=== PATIENT | female | born 1990 | race Caucasian/White ===

== ENCOUNTER → 2018-09-05 16:03 | Outpatient (CLI) | payer OTHER, SELFPAY ==
[2018-09-05 13:55] VITALS: BMI 38.7
[2018-09-05 19:52] LABS: Chlamydia Trachomatis by PCR Negative (Negative); Neisserai gonorrhoeae by PCR Negative (Negative); Probe Check PASS; Sample Adequacy Control PASS; Specimen Processing Control PASS
== END ==
PROVIDERS: Family Provider Family Medicine; PCP Family Medicine; Referring Provider Nurse Practitioner Women's Health; Visit Provider Nurse Practitioner Women's Health
DX: N90.89 Other specified noninflammatory disorders of vulva and perineum (principal); N89.8 Other specified noninflammatory disorders of vagina
CPT/HCPCS: 87070; 87205; 87255; 87491; 87591

== ENCOUNTER → 2019-09-01 10:10 | Outpatient (CLI) | payer OTHER, SELFPAY ==
[2019-09-01 09:22] VITALS: BMI 38.7
[2019-09-01 10:26] LABS: Absolute Lymphocyte Count 2.62 X10^3/uL (0.83-4.51); Absolute Neutrophil Count 5.6 X10^3/uL (2.0-7.7); Basophil# 0.03 X10^3/uL; Basophil% 0.3 % (0-1); Eosinophil# 0.06 X10^3/uL; Eosinophils% 0.7 % (0-5); Hematocrit 39.9 % (37-47); Hemoglobin 12.7 g/dL (12.0-15.0); Lymphocyte # 2.62 X10^3/ul (4.0); Lymphocyte % 28.9 % (19-41); Mean Corp Hgb Conc 31.8 g/dL (32-36); Mean Corpuscular Hgb 28.4 pg (27.0-32.0); Mean Corpuscular Volume 89.3 fL (81-99); Mean Platelet Vol. 9.1 fl (6.2-12.0); Monocyte# 0.69 X10^3/uL; Monocyte% 7.6 % (0-10); NRBC Flagged by Analyzer 0 % (0-5); Neutrophil # 5.64 X10^3/uL (2.7-7.7); Neutrophil % 62.2 % (47-70); Platelet Count 361 K/mm3 (150-450); RBC Distribution Width CV 13.2 % (11.6-14.6); RBC Distribution Width SD 42.9 fl (35.1-43.9); Red Blood Count 4.47 M/mm3 (4.2-5.4); White Blood Count 9.1 K/mm3 (4.4-11.0)
[2019-09-01 10:54] LABS: Glucose Challenge Gest 1H 50g 121 mg/dL (70-140)
[2019-09-01 11:39] LABS: HIV - WCH Non-Reactive (Nonreactive); Hepatitis B Surface Antigen Non-Reactive (Nonreactive); Hepatitis C Antibody Non-Reactive (Nonreactive); Rubella IgG 18.5 IU/mL
[2019-09-01 19:59] LABS: Chlamydia Trachomatis by PCR Negative (Negative); Neisserai gonorrhoeae by PCR Negative (Negative); Probe Check PASS; Sample Adequacy Control PASS; Specimen Processing Control PASS
[2019-09-03 21:57] LABS: Rapid Plasmin Reagin (RPR) NONREACTIVE (NONREACTIVE)
[2019-09-08 05:27] LABS: HPV Reflexed? NOT INDICATED
== END ==
PROVIDERS: PCP Family Medicine; Referring Provider Obstetrics & Gynecology; Visit Provider Obstetrics & Gynecology
DX: O09.90 Supervision of high risk pregnancy, unspecified, unspecified trimester (principal); Z12.4 Encounter for screening for malignant neoplasm of cervix; Z3A.00 Weeks of gestation of pregnancy not specified
CPT/HCPCS: 36415; 82950; 85025; 86592; 86703; 86762; 86803; 86850; 86900; 86901; 87086; 87088; 87340; 87491; 87591; 88175; G0145

== ENCOUNTER → 2019-09-29 | Outpatient (CLI) | payer OTHER, SELFPAY ==
[2019-09-29 16:08] VITALS: BMI 38.7
[2019-09-29 18:49] LABS: Amphetamine Urine VISTA NEGATIVE (<1000 ng/mL); Barbiturate Urine VISTA NEGATIVE (< 200 ng/mL); Benzodiazepine Urine VISTA NEGATIVE (< 200 ng/mL); Cocaine Urine VISTA NEGATIVE (< 300 ng/mL); Ecstacy Urine VISTA NEGATIVE (< 500 ng/mL); Methadone Urine VISTA NEGATIVE (< 300 ng/mL); PCP Urine VISTA NEGATIVE (< 25 ng/mL); THC Urine VISTA NEGATIVE (< 50 ng/mL); Vista UDS pH Range 7
== END | disposition home or self-care (01) ==
LOC: LABSPEC 17:20
PROVIDERS: PCP Family Medicine; Referring Provider Obstetrics & Gynecology; Visit Provider Obstetrics & Gynecology
DX: O09.90 Supervision of high risk pregnancy, unspecified, unspecified trimester (principal); Z3A.00 Weeks of gestation of pregnancy not specified
CPT/HCPCS: 80307

== ENCOUNTER → 2019-12-22 15:16 | Outpatient (CLI) | payer OTHER, SELFPAY ==
[2019-11-28 16:20] VITALS: BMI 38.7
[2019-12-22 15:37] LABS: Absolute Lymphocyte Count 2.37 X10^3/uL (0.83-4.51); Absolute Neutrophil Count 7.1 X10^3/uL (2.0-7.7); Basophil# 0.01 X10^3/uL; Basophil% 0.1 % (0-1); Eosinophil# 0.07 X10^3/uL; Eosinophils% 0.7 % (0-5); Hematocrit 36.6 % (37-47); Hemoglobin 11.8 g/dL (12.0-15.0); Lymphocyte # 2.37 X10^3/ul (4.0); Mean Corp Hgb Conc 32.2 g/dL (32-36); Mean Corpuscular Hgb 28.4 pg (27.0-32.0); Mean Platelet Vol. 9.4 fl (6.2-12.0); Monocyte% 6.8 % (0-10); NRBC Flagged by Analyzer 0 % (0-5); Platelet Count 326 K/mm3 (150-450); RBC Distribution Width SD 42.1 fl (35.1-43.9); Red Blood Count 4.16 M/mm3 (4.2-5.4); White Blood Count 10.3 K/mm3 (4.4-11.0)
[2019-12-22 15:51] LABS: Glucose Challenge Gest 1H 50g 133 mg/dL (70-140)
== END ==
PROVIDERS: PCP Family Medicine; Referring Provider Obstetrics & Gynecology; Visit Provider Obstetrics & Gynecology
DX: O09.90 Supervision of high risk pregnancy, unspecified, unspecified trimester (principal); Z13.1 Encounter for screening for diabetes mellitus; Z3A.00 Weeks of gestation of pregnancy not specified
CPT/HCPCS: 36415; 82950; 85025

== ENCOUNTER 2020-01-23 10:13 | Outpatient (RCR) | payer OTHER, SELFPAY ==
[2019-10-27 15:58] VITALS: BMI 38.7
[2020-01-19 15:42] VITALS: BMI 47.7
[2020-01-23 14:08] LABS: Probe Check PASS; Specimen Processing Control PASS
== END 2020-02-16 23:59 ==
LOC: EMPH 10:13
PROVIDERS: PCP Family Medicine; Visit Provider Family Medicine Geriatric Medicine
DX: U07.1 COVID-19 (principal)
CPT/HCPCS: 87426; 87635; U0002

== ENCOUNTER → 2020-02-02 14:50 | Outpatient (CLI) | payer OTHER, SELFPAY ==
[2019-11-28 16:20] VITALS: BMI 38.7
[2020-01-19 15:42] VITALS: BMI 47.7
--- NOTE | 2020-02-02 14:57 | US_ITS ---
STUDY: SECOND AND THIRD TRIMESTER OBSTETRICAL ULTRASOUND REASON FOR EXAM: Female, 29 years old GROWTH LMP: Unknown. TECHNIQUE: Transabdominal TECHNICAL QUALITY: Adequate. PRIOR ULTRASOUND: None. FINDINGS: There is a single intrauterine fetus. The fetus is in a cephalic presentation. There is demonstrated cardiac activity with a heart rate of 134 bpm. There is a normal amniotic fluid volume. The largest amniotic fluid pocket measures 3.7 cm. The amniotic fluid index (TARUN) is 11.9 cm. The placenta is anterior in location and is not low lying. There are Grade 1 placental changes. The cervix measures 4.0 cm in length. The cervix is closed. The adnexal regions are not visualized. BIOMETRY: BPD: 8.16 cm: 32 weeks, 6 days HC: 29.77 cm: 33 weeks, 0 days AC: 28.58 cm: 32 weeks, 5 days FL: 6.27 cm: 32 weeks, 4 days CI: 78 FL/BPD: 77 FL/AC: 22 HC/AC: 1.04 age by current US: 32 weeks, 6 days. ULISES by current US: 03/23/2020. Estimated weight: 2011 grams, +/- 294 grams, 45 %. age by prior US: No prior ultrasound. Age by LMP: 32 weeks, 3 days. ULISES by LMP: 03/26/2020. ANATOMY: anatomy is limited due to advanced gestation. In addition, a some is not dedicated to evaluate anatomy and therefore is limited in this regard. US/OB Limited With Biometrics IMPRESSION: Single intrauterine with ultrasound age of 32 weeks and 6 days and estimated date of delivery of 03/23/2020. VERTEX presentation. Anterior placenta with no previa. Normal amniotic fluid. Normal cardiac activity. Electronically Signed: Stefany Figueroa MD at 3:26 EST , Service support ,
== END ==
LOC: OPUS 14:52 → US 14:53
PROVIDERS: PCP Family Medicine; Referring Provider Obstetrics & Gynecology; Visit Provider Obstetrics & Gynecology
DX: O99.210 Obesity complicating pregnancy, unspecified trimester (principal); Z3A.32 32 weeks gestation of pregnancy
CPT/HCPCS: 76816

== ENCOUNTER → 2020-02-27 16:00 | Outpatient (CLI) | payer OTHER, SELFPAY ==
[2019-11-28 16:20] VITALS: BMI 38.7
[2020-02-25 15:48] VITALS: BMI 47.6
--- NOTE | 2020-02-27 16:01 | US_ITS ---
STUDY: SECOND AND THIRD TRIMESTER OBSTETRICAL ULTRASOUND - LIMITED REASON FOR EXAM: Female, 29 years old GROWTH LMP: PRIOR ULTRASOUND: 02/02/2020 TECHNIQUE: Transabdominal TECHNICAL QUALITY: Adequate. FINDINGS: There is a single intrauterine fetus. The fetus is in a cephalic presentation. There is demonstrated cardiac activity with a heart rate of 135 bpm. There is a normal amniotic fluid volume. The largest amniotic fluid pocket measures 5.7 cm. The amniotic fluid index (TARUN) is 14.7 cm. The placenta is anterior in location and is not low lying. There are Grade 1 placental changes. The cervix measures 3.9 cm in length. BIOMETRY: BPD: 8.8 cm: 35 weeks, 6 days HC: 33.0 cm: 37 weeks, 4 days AC: 31.5 cm: 35 weeks, 4 days FL: 7.0 cm: 35 weeks, 5 days Age by LMP: 36 weeks, 0 days. ULISES by LMP: 03/26/2020. age by current US: 36 weeks, 2 days. ULISES by current US: 03/24/2020. Estimated weight: 2760 grams, +/- 403 grams, 44 percentile. Gender: US/OB Limited With Biometrics IMPRESSION: Living intrauterine of 36 weeks 2 days as described above. Electronically Signed: Andrzej Bourgeois MD at 8:10 EST Tel , Service support ,
== END ==
PROVIDERS: PCP Family Medicine; Referring Provider Obstetrics & Gynecology; Visit Provider Obstetrics & Gynecology
DX: O09.90 Supervision of high risk pregnancy, unspecified, unspecified trimester (principal); O99.210 Obesity complicating pregnancy, unspecified trimester; O99.213 Obesity complicating pregnancy, third trimester; E66.9 Obesity, unspecified; Z3A.36 36 weeks gestation of pregnancy
CPT/HCPCS: 76816

== ENCOUNTER → 2020-03-01 | Outpatient (CLI) | payer OTHER, SELFPAY ==
[2020-03-01 15:53] VITALS: BMI 47.7
== END | disposition home or self-care (01) ==
LOC: LABSPEC 16:53
PROVIDERS: PCP Family Medicine; Visit Provider Obstetrics & Gynecology
DX: Z34.90 Encounter for supervision of normal pregnancy, unspecified, unspecified trimester (principal)
CPT/HCPCS: 87081

== ENCOUNTER → 2020-03-23 | Outpatient (CLI) | payer OTHER, SELFPAY ==
[2020-03-22 15:52] VITALS: BMI 49.2
== END | disposition home or self-care (01) ==
LOC: LABSPEC 18:00
PROVIDERS: PCP Family Medicine; Referring Provider Obstetrics & Gynecology; Visit Provider Obstetrics & Gynecology
DX: Z34.80 Encounter for supervision of other normal pregnancy, unspecified trimester (principal)
CPT/HCPCS: 87635; C9803; U0005; U0003

== ENCOUNTER 2020-04-01 18:55 | Inpatient (IN) | payer OTHER, SELFPAY ==
[2020-03-29 15:41] VITALS: BMI 49.5
[2020-04-01 20:40] VITALS: PULSE 72; O2SAT 97
[2020-04-01 20:42] VITALS: BP 136/83; PULSE 66
[2020-04-01] MEDS: Lactated Ringers 1,000 ML 50 ML IV (20:55)
[2020-04-01 21:07] VITALS: BMI 50.1
[2020-04-01 21:12] LABS: Absolute Lymphocyte Count 3.16 X10^3/uL (0.83-4.51); Absolute Neutrophil Count 8.1 X10^3/uL (2.0-7.7); Basophil# 0.02 X10^3/uL; Basophil% 0.2 % (0-1); Eosinophil# 0.05 X10^3/uL; Eosinophils% 0.4 % (0-5); Hematocrit 36.7 % (37-47); Hemoglobin 11.9 g/dL (12.0-15.0); Lymphocyte # 3.16 X10^3/ul (4.0); Lymphocyte % 25.6 % (19-41); Mean Corp Hgb Conc 32.4 g/dL (32-36); Mean Corpuscular Hgb 28.3 pg (27.0-32.0); Mean Corpuscular Volume 87.2 fL (81-99); Mean Platelet Vol. 10.2 fl (6.2-12.0); Monocyte# 0.96 X10^3/uL; Monocyte% 7.8 % (0-10); NRBC Flagged by Analyzer 0 % (0-5); Neutrophil # 8.08 X10^3/uL (2.7-7.7); Neutrophil % 65.6 % (47-70); Platelet Count 319 K/mm3 (150-450); RBC Distribution Width CV 14.1 % (11.6-14.6); RBC Distribution Width SD 44.6 fl (35.1-43.9); Red Blood Count 4.21 M/mm3 (4.2-5.4); White Blood Count 12.3 K/mm3 (4.4-11.0)
[2020-04-01 21:45] VITALS: TEMP 37.1
[2020-04-01 21:46] VITALS: BP 146/88
[2020-04-01 21:47] VITALS: PULSE 73; O2SAT 97
[2020-04-01] MEDS: miSOPROStol 25 MCG TABLET VAGINAL (21:58)
[2020-04-02] VITALS (121 sets, daily range): BP systolic 95–177; BP diastolic 49–110; PULSE 8–229; RESP 12–16; TEMP 36.6–37.5; O2SAT 81–100
--- NOTE | 2020-04-02 03:27 | HP.PCM_ITS ---
- Problem List (1) Encounter for induction of labor Status: Acute (2) Post-dates Status: Acute (3) 39 weeks gestation of Status: Acute Comment: electronic ordered 03/23/20 NEGATIVE (4) Obesity affecting Status: Acute Qualifiers: Comment: nl 1tm glucola. encouraged healthy weight gain. after 32 weeks plan growth US q 4 weeks and weekly nsts and testing until delivery. 01/04 nl growth, 02/01 nl growth, 02/26 nl growth (5) Status: Acute Qualifiers: Comment: declined genetic, carrier and NTD. Normal anatomy (6) Supervision of high risk , antepartum Status: Acute Comment: PRR ULISES 03/26/2020 surprise Spouse: Jun History and Physical Date of Admission: 04/02/20 Intake Vital Signs 03/29/20 Height 5 ft 6 in 03/29/20 Weight: 307 lb 03/29/20 BP 122/88 H Intake Visit Reasons: 40 WK OB/NST Oil Driller Required: No Is patient in pain?: No Allergies No Known Allergies Allergy (Verified 03/29/20 15:42) Medications multivitamin no.47-iron fum 27 mg-folate no.1 1 mg-dha 300 mg capsule cap PO 09/01/19 [History Confirmed 03/29/20] Last Menstral Period: 06/20/19 Zika: Zika virus screening: Negative : No PFSH PFSH Medical History Migraines (Acute) Obesity (Acute) Surgical History History of tonsillectomy (Acute) Family History Mother Hypertension Grandfather Cancer Aunt Cancer Grandmother CVA (cerebral vascular accident) Social History (Updated 03/30/20 @ 08:[address] 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 Patient has had a complicated by morbid obesity but has reassuring testing. OB Visit ULISES Calculator Estimated Delivery Date Method Current WG Current Estimate 03/26/20 LMP (Certain) 40w 4d Expected Delivery Route/Plan Labor Preferences- CB/BF classes: next month labor support person: Jun labor intervention preferences: [] pain management options preferred: [] cut cord/dad catch: [] : [] PP control planned: [] discussed possible routes of delivery and associated risks: [] special requests: [] Specific Issue/Plans flu vaccine: declined tdap vaccine: 12/21 given rhogam: na LARC form signed: declined movement and labor precautions reviewed. Problem list reviewed and updated with the most current plan of care details and appropriate orders placed. Relevant counseling for the gestational age provided. Continue routine care and follow up unless otherwise noted in visit notes/problem list details Initial Weight: 290 lb Date EGA Weight BP Urine Prot Glucose FHR FuHt Pres Dilation Effaced St Visit Note 09/29/19 14w 3d 289 lb (-16 oz) 120/88 Negative Negative 150 Sm- no vb cramping 10/27/19 18w 3d 291 lb (+16 oz) 132/86 Negative Negative 155 SM- no vb cramping, anatomy scan scheduled 11/28/19 23w 0d 290 lb (+0 oz) 126/78 Negative Negative 150 SM- no vb lof good fm no regular ctx. obtain anatomy scan reports. 12/22/19 26w 3d 291 lb (+16 oz) 110/82 Negative Negative 140 SM- no vb cramping lof good fm nl cbc gct tdap today 01/05/20 28w 3d 293 lb (+3 lb) 102/60 Negative Negative 145 29 SM- no vb lof good fm no regular ctx. 01/19/20 30w 3d 296 lb (+6 lb) 110/86 Negative Negative 140 31 SM- no vb lof good fm no regular ctx. 02/02/20 32w 3d 291 lb (+16 oz) 120/76 Negative Negative 140 SM- no vb lof good fm no regular ctx 02/09/20 33w 3d 294 lb 3 oz (+4 lb 3 oz) Negative Negative 140 nst only 02/19/20 34w 6d 298 lb (+8 lb) 124/85 Negative Negative 140 SM- no vb lof good fm no regular ctx 02/25/20 35w 5d 295 lb (+5 lb) 131/88 130 MH-reactive NST 03/01/20 36w 3d 296 lb (+6 lb) 125/81 130 SM- no vb lof good fm no regular ctx gbs done 03/08/20 37w 3d 298 lb 4 oz (+8 lb 4 oz) Negative Negative 140 37 GP - no LOF, VB, DFM, ctx. GBS negative. NST reactive. Declines SVE. 03/15/20 38w 3d 305 lb 4 oz (+15 lb 4 oz) 130/88 Negative Negative 135 38 MH-declined internal exam. No CTX. Good FM. No VB, LOF. Reactive NST 03/29/20 40w 3d 307 lb (+17 lb) 122/88 Negative Negative 130 1 50 -3 SM- nst done plan cytotec IOL night 41 weeks ACOG First Trimester First Trimester: Desire for , Alcohol, Tobacco Cessation, Illicit/Recreational Drug/Substance Use, Intimate Partner Violence, Barriers to care, Unstable Housing, Communication Barriers, Environmental/Work Hazards, Anticipated Course of Care, Toxoplasmosis Precations, Use of Any medications, Sexual activity, Exercise, Dental Care, Sauna/Hot tub use, Seat Belt use, Childbirth classes/Hospital facilities, , Travel, Indications for US and Screening for Aneuploidy Diagnostics Diagnostics Details: HIV: Urine Culture: Sequential Screen: NIPT Screen: ROS Const Reports system reviewed and no additional complaints, except as docu Card Reports system reviewed and no additional complaints, except as docu Resp Reports system reviewed and no additional complaints, except as docu GI Reports system reviewed and no additional complaints, except as docu, Reports nausea Reports system reviewed and no additional complaints, except as docu Musc Reports system reviewed and no additional complaints, except as docu Exam Const General: cooperative, healthy appearing, comfortable, anxious HENMT Head: normal to inspection Nose: external nose normal Face and sinus: normal facial exam Neck Neck: normal visual inspection, full ROM, no lymphadenopathy Thyroid: thyroid normal Chest Chest palpation & inspection: normal inspection of the chest Resp Effort & Inspection: normal respiratory effort GI Inspection: normal to inspection Palpation: soft, other (gravid uterus) Other: infant vertex and appropriate size for gestational age Other: Cervical Exam: Extrem General: pedal edema Office Procedures OB NST Non-Stress Test Indications for Monitoring: Yes Morbid obesity Heart Rate Baseline: 130 Heart Rate Variability: moderate Movement: Present Heart Rate Accelerations: Present Decelerations: Absent Contractions: Absent Impression: Yes Reactive Non-Stress Test Category 1 Results POC Urinalysis 2 Dip (Clinic) Office Urine Glucose Negative Last Edit by Rebecca Tai on 03/29/20 16:07 Office Urine Protein Negative Last Edit by Rebecca Tai on 03/29/20 16:07 Assessment & Plan Problems 1. 39 weeks gestation of Z3A.39 electronic ordered 03/23/20 NEGATIVE 2. Obesity affecting O99.210 nl 1tm glucola. encouraged healthy weight gain. after 32 weeks plan growth US q 4 weeks and weekly nsts and testing until delivery. 01/04 nl growth, 02/01 nl growth, 02/26 nl growth 3. 40 weeks gestation of Z3A.40 declined genetic, carrier and NTD. Normal anatomy 4. Supervision of high risk , antepartum O09.90 PRR ULISES 03/26/2020 surprise Spouse: Jun 30-year-old G1, P0 at 41 weeks presents for induction of labor secondary to postdates. Patient presents IOL, plan management for with Cytotec followed by Pitocin. Pain management: [plans epidural]. GBS [negative]. Management of any complications: [none] I have reviewed the [facility] and made any clinically relevant updates. Orders Orders: OB NST 03/29/20 O99.210 POC Urinalysis 2 Dip (Clinic) 03/29/20 Coding Level of Care Code OB Routine Diagnoses 39 weeks gestation of Z3A.39 Obesity affecting O99.210 40 weeks gestation of Z3A.40 ??Weeks of gestation: 40 weeks Supervision of high risk , antepartum O09.90 Additional Codes Non-Stress Test (30615)
[2020-04-02] MEDS: miSOPROStol 25 MCG TABLET PO (03:32)
[2020-04-02] MEDS: Acetaminophen 500 MG Tablet PO ×2 (03:36→16:55)
[2020-04-02] MEDS: Oxytocin 30 units/NS 500 ml 30 UNITS/500 ML IV.SOLN IV (07:51)
[2020-04-02] MEDS: Lactated Ringers 500 ML 999 ML IV ×2 (08:46→13:12)
[2020-04-02] MEDS: Labetalol (Prefilled) 20 MG/4 ML IV (09:00)
[2020-04-02] MEDS: Magnesium Sulfate 4gm/100mL 4 GM/100 ML IV.SOLN. IV (09:27)
[2020-04-02] MEDS: Labetalol 100 MG Tablet PO ×2 (09:37→22:32)
[2020-04-02] MEDS: Magnesium Sulfate 4gm/100mL 2 GM/50 ML IV.SOLN. IV (09:52)
[2020-04-02] MEDS: Magnesium Sulfate 20 GM/500 ML BAG IV ×2 (10:06→21:02)
[2020-04-02] MEDS: fentaNYL-bupivacaine (epidural) 100 ML BAG EPIDURAL ×3 (10:41→19:45)
[2020-04-02 12:09] LABS: AST(SGOT) 13 U/L (15-37); Alanine Aminotransfer ALT/SGPT 21 U/L (13-56); Creatinine, Serum 0.42 mg/dL (0.55-1.02); EST Glomerular Filtration Rate 186 mL/min (>60); Est Glom Filt Rate - Afr Amer 225 mL/min (>60); Estimated Creatinine Clearance 183.35 ml/min; Uric Acid 3.1 mg/dL (2.6-6.0)
[2020-04-02 12:34] LABS: Protein, Urine (Random) 8.8 mg/dL (<11.9); Protein:Creat Ratio 221 mg/g CRE (0-200)
[2020-04-02] MEDS: Lactated Ringers 1,000 ML 150 ML IV (13:25)
[2020-04-02] MEDS: 0.9% Saline Lock 10 ML Syringe IV ×3 (16:50→23:23)
[2020-04-02] MEDS: Ondansetron 4 MG/2 ML Vial IV (18:09)
[2020-04-02] MEDS: Amnioinfusion- 0.9% NS 1,000 ML IV.SOLN. 1000 ML INTRA-UTER (18:44)
[2020-04-02] MEDS: Oxytocin 30 units/NS 500 ml 30 UNITS/500 ML IV.SOLN 334 UNITS IV (21:58)
--- NOTE | 2020-04-02 22:07 | PCM.OPRPT ---
Problem List (1) Encounter for induction of labor Status: Acute (2) Post-dates Status: Acute (3) 39 weeks gestation of Status: Acute Comment: electronic ordered 03/23/20 NEGATIVE (4) Obesity affecting Status: Acute Qualifiers: Comment: nl 1tm glucola. encouraged healthy weight gain. after 32 weeks plan growth US q 4 weeks and weekly nsts and testing until delivery. 01/04 nl growth, 02/01 nl growth, 02/26 nl growth (5) Status: Acute Qualifiers: Comment: declined genetic, carrier and NTD. Normal anatomy (6) Supervision of high risk , antepartum Status: Acute Comment: PRR ULISES 03/26/2020 surprise Spouse: Jun (7) Preeclampsia, severe Status: Acute Comment: intrapartum, magnesium started resolved with labetalol Vaginal Delivery Maternal Presentation: Medically Indicated Induction iol 41 weeks Method of Induction: Pitocin, Cytotec Medical Reason for Induction: Post term Amniotic Membrane Rupture Type: Spontaneous Amniotic Fluid Description: Clear Final ULISES: 03/26/20 Gestational age: 41 Weeks and 0 Days Date of Procedure: 04/02/20 Pre-Operative Diagnosis: iol postdates Post-Operative Diagnosis: same Surgery/ Procedure Performed: Spontaneous Vaginal Delivery Type of Anesthesia: Epidural Description of Procedure: Patient began pushing and delivered the head in the ALEX presentation. The head was delivered atraumatically. The anterior and posterior shoulders delivered without complication followed by the rest of the infant and the infant was placed on the maternal abdomen. Delayed cord clamping was employed for approximately 60 seconds. Cord was clamped and cut and gentle traction was applied to the cord and the placenta delivered spontaneously immediately following it was noted to be intact with three-vessel cord. The perineum and vagina were inspected and noted to have no laceration. EBL was 100 cc. Patient and infant tolerated delivery well. Presentation: DONATO, ALEX Placental Delivery Description: Spontaneous Placenta Disposition: [facility] Cord Vessel Description: 3 Vessels Cord Entanglement: None Estimated Blood Loss: 100 A gender: Male Episiotomy Description: None Laceration: None Medications given after delivery: IV Pitocin Complications: None Multi Select Codes - Urinary/Genital Urinary/Genital CPT Codes: 08603 Vaginal Delivery [facility]
[2020-04-02 23:24] LABS: Hemoglobin 11.8 g/dL (12.0-15.0); Mean Corp Hgb Conc 32.8 g/dL (32-36); Mean Corpuscular Hgb 28.2 pg (27.0-32.0); Mean Corpuscular Volume 86.1 fL (81-99); Mean Platelet Vol. 10.3 fl (6.2-12.0); Platelet Count 311 K/mm3 (150-450); RBC Distribution Width CV 14.3 % (11.6-14.6); RBC Distribution Width SD 44.4 fl (35.1-43.9); Red Blood Count 4.18 M/mm3 (4.2-5.4); White Blood Count 24.9 K/mm3 (4.4-11.0)
[2020-04-03] VITALS (30 sets, daily range): BP systolic 102–138; BP diastolic 51–75; PULSE 68–96; RESP 16–18; TEMP 36.4–37.1; O2SAT 82–99
[2020-04-03] MEDS: Senna/Docusate Sodium 1 Tablet PO ×2 (00:36→09:22)
[2020-04-03] MEDS: Magnesium Sulfate 20 GM/500 ML BAG IV (06:33)
--- NOTE | 2020-04-03 08:52 | PCM.PN.OB ---
Patient Problems: Active and Suspected Problems (Last Reviewed 03/29/20 @ 15:41 by Rebecca Tai) Encounter for induction of labor (Acute) Post-dates (Acute) Preeclampsia, severe (Acute) intrapartum, magnesium started resolved with labetalol 39 weeks gestation of (Acute) electronic ordered 03/23/20 NEGATIVE Obesity affecting (Acute) nl 1tm glucola. encouraged healthy weight gain. after 32 weeks plan growth US q 4 weeks and weekly nsts and testing until delivery. 01/04 nl growth, 02/01 nl growth, 02/26 nl growth (Acute) declined genetic, carrier and NTD. Normal anatomy Supervision of high risk , antepartum (Acute) PRR ULISES 03/26/2020 surprise Spouse: Jun Subjective: Patient doing well without complaints. Tolerating PO. Ambulating and voiding without difficulty. feeding well. Denies chest pain, shortness of breath, calf pain/swelling, fevers, chills, lightheadedness. - Physical Exam Vitals/I&O's: Vital Signs Temp Pulse Resp BP Pulse Ox 98.2 F 94 18 133/75 H 98 04/03/20 08:10 04/03/20 08:11 04/03/20 08:10 04/03/20 08:11 04/03/20 06:55 Oxygen Delivery Method Room Air Weight: 311 lb Body Mass Index (BMI) 50.1 Intake and Output for Last 24 Hours 04/01/20 04/02/20 04/03/20 23:59 23:59 23:59 Intake Total 4020.54 / 4020.54 2065.03 / 2065.03 Output Total 1984 3950 / 3950 Balance 2035.54 / 2035.54 -1884.97 / -1884.97 General: Alert, Oriented x3 Lungs: Clear to auscultation Cardiovascular: Regular rate Laboratory Results 04/02/20 11:20: Creatinine 0.42 L, Estim Creat Clear Calc 183.35, Est GFR (MDRD) Af Amer 225, Est GFR (MDRD) Non-Af 186, Uric Acid 3.1, AST 13 L, ALT 21 04/02/20 12:00: U Random Total Protein 8.8, Urine Creatinine 39.80, Protein/Creatinin Ratio 221 H 04/02/20 22:15: WBC Cancelled, Corrected WBC Cancelled, RBC Cancelled, Hgb Cancelled, Hct Cancelled, MCV Cancelled, MCH Cancelled, MCHC Cancelled, RDW Std Deviation Cancelled, RDW Coeff of Sienna Cancelled, Plt Count Cancelled, MPV Cancelled, Diff Path Review Cancelled 04/02/20 23:15: WBC 24.9 H, RBC 4.18 L, Hgb 11.8 L, Hct 36.0 L, MCV 86.1, MCH 28.2, MCHC 32.8, RDW Std Deviation 44.4 H, RDW Coeff of Sienna 14.3, Plt Count 311, MPV 10.3 Current Medications Acetaminophen (Acetaminophen 500 Mg Tablet) 1,000 mg PO Q8H PRN PRN PRN Reason: Pain Score 1-3 Bisacodyl (Bisacodyl 10 Mg Suppository) 10 mg RECTAL UD PRN PRN Reason: If no BM Dibucaine (Dibucaine 30 Gm Tube) 1 applic TOPICAL TID PRN PRN; Protocol PRN Reason: Discomfort Hydrocortisone (Hydrocortisone 2.5% Crm) 1 applic TOPICAL TID PRN PRN; Protocol PRN Reason: Discomfort Naproxen (Naproxen 250 Mg Tablet) 500 mg PO Q8H PRN PRN PRN Reason: Pain Score 1-3 Ondansetron HCl (Ondansetron 4 Mg/2 Ml Vial) 4 mg IV Q4H PRN PRN PRN Reason: Nausea Oxycodone HCl (Oxycodone 5 Mg Tablet) 5 - 10 mg PO Q4H PRN PRN PRN Reason: Pain Score 4-10 Senna/Docusate Sodium (Senna/Docusate Sodium 1 Tablet) 1 - 2 tablet PO DAILY PRN PRN PRN Reason: Constipation Last Admin: 04/03/20 00:36 Dose: 2 tablet Documented by: Simethicone (Simethicone 80 Mg Tablet) 80 mg PO PCHS PRN PRN Reason: Indigestion/Stomach pain Sodium Chloride (0.9% Saline Lock 10 Ml Syringe) 5 - 15 ml IV UD PRN PRN Reason: SALINE FLUSH Last Admin: 04/02/20 23:23 Dose: 10 ml Documented by: Medical Necessity - Tobacco Use Smoking Status: Never smoker Assessment/Plan All Active Problems (Last Reviewed 03/29/20 @ 15:41 by Rebecca Tai) Encounter for induction of labor (Acute) Post-dates (Acute) Preeclampsia, severe (Acute) 39 weeks gestation of (Acute) Obesity affecting (Acute) (Acute) Supervision of high risk , antepartum (Acute) s/p PPD # 1 1. routine post delivery care 2. breast feeding- support given 3. rh positive 4. rubella immune preeclampsia with severe features- nl labs and nl protein in urine but severely elevated bps in labor, controlled with labetalol in labor and magnesium sulfate. nl bps now off anti hypertensives, will dc magnesium and monitor bps.
--- NOTE | 2020-04-03 08:56 | DCINST_ITS ---
Discharge Diet: No Restrictions Discharge Activity: Return to Normal Activity, May not drive while taking narcotic pain medications., May Shower May resume sexual activity in: 4-6 weeks Call your doctor if your incision/area has: Continuous Slow Oozing, Sudden Increased Bleeding, Increased Pain/ Swelling, Increased Redness, Foul Smelling Discharge Additional Instructions: If you experience any of the following, contact your healthcare provider. * Bleeding that soaks a pad every hour for 2 hours * Fever 100.4 or higher * Unrelieved incision or abdominal pain * Swelling, redness, discharge or bleeding from your incision or episiotomy site * Your incision begins to separate * Problems urinating (including inability to urinate or burning while urinating). * Visual changes * Severe headache * Flu-like symptoms * Pain or redness in one of both of your breasts * Pain, warmth, tenderness or swelling in your legs, especially the calf area * Frequent nausea and vomiting * Symptoms of depression or anxiety If you experience any of the following, call 911 or go to the nearest Emergency Room. * Chest pain * Problems breathing * Seizure activity * Partial or complete paralysis of a body part, slurred speech, weakness or drooping of the face, or a sudden inability to walk or hold your balance Allergies/Adverse Reactions: Allergies No Known Allergies Allergy (Verified 04/01/20 21:11) Medications to take at Discharge multivitamin no.47-iron fum 27 mg-folate no.1 1 mg-dha 300 mg capsule 1 tab PO DAILY 09/01/19 Naproxen [Naprosyn] 250 - 500 mg PO Q8H PRN PRN #30 tab 04/03/20 The following prescriptions were given: Naproxen [Naprosyn] 250 - 500 mg PO Q8H PRN PRN #30 tab PRN Reason: MILD PAIN Transmission Status: Received by [facility] Please Follow Up With: Kyung Cruz MD - [phone] When: Call to make an appointment with your doctor in 6 weeks. If you had elevated Blood pressure or 4th degree laceration you will need to be seen in 2 weeks. Primary Care Physician: Amadou Harvey MD [Primary Care Provider] - Test Results: Test results from this visit will be discussed in further detail at your follow- up appointment, if applicable.
--- NOTE | 2020-04-03 08:56 | PCM.DCVAG ---
Discharge Diet: No Restrictions Discharge Activity: Return to Normal Activity, May not drive while taking narcotic pain medications., May Shower May resume sexual activity in: 4-6 weeks Call your doctor if your incision/area has: Continuous Slow Oozing, Sudden Increased Bleeding, Increased Pain/ Swelling, Increased Redness, Foul Smelling Discharge Additional Instructions: If you experience any of the following, contact your healthcare provider. Bleeding that soaks a pad every hour for 2 hours Fever 100.4 or higher Unrelieved incision or abdominal pain Swelling, redness, discharge or bleeding from your incision or episiotomy site Your incision begins to separate Problems urinating (including inability to urinate or burning while urinating). Visual changes Severe headache Flu-like symptoms Pain or redness in one of both of your breasts Pain, warmth, tenderness or swelling in your legs, especially the calf area Frequent nausea and vomiting Symptoms of depression or anxiety If you experience any of the following, call 911 or go to the nearest Emergency Room. Chest pain Problems breathing Seizure activity Partial or complete paralysis of a body part, slurred speech, weakness or drooping of the face, or a sudden inability to walk or hold your balance Allergies/Adverse Reactions: Allergies No Known Allergies Allergy (Verified 04/01/20 21:11) Medications to take at Discharge multivitamin no.47-iron fum 27 mg-folate no.1 1 mg-dha 300 mg capsule 1 tab PO DAILY 09/01/19 Naproxen [Naprosyn] 250 - 500 mg PO Q8H PRN PRN #30 tab 04/03/20 The following prescriptions were given: Naproxen [Naprosyn] 250 - 500 mg PO Q8H PRN PRN #30 tab PRN Reason: MILD PAIN Transmission Status: Received by [facility] Please Follow Up With: Kyung Cruz MD - [phone] When: Call to make an appointment with your doctor in 6 weeks. If you had elevated Blood pressure or 4th degree laceration you will need to be seen in 2 weeks. Primary Care Physician: Amadou Harvey MD [Primary Care Provider] - Test Results: Test results from this visit will be discussed in further detail at your follow-up appointment, if applicable.
[2020-04-03] MEDS: 0.9% Saline Lock 10 ML Syringe IV (09:22)
[2020-04-03] MEDS: Acetaminophen 500 MG Tablet 1000 MG PO ×2 (12:12→20:13)
[2020-04-04] VITALS (9 sets, daily range): BP systolic 118–184; BP diastolic 53–100; PULSE 55–74; RESP 16–18; TEMP 36.6–37.1; O2SAT 98
--- NOTE | 2020-04-04 06:15 | PCM.PN.OB ---
Patient Problems: Active and Suspected Problems (Last Reviewed 03/29/20 @ 15:41 by Rebecca Tai) Encounter for induction of labor (Acute) Post-dates (Acute) Preeclampsia, severe (Acute) intrapartum, magnesium started resolved with labetalol 39 weeks gestation of (Acute) electronic ordered 03/23/20 NEGATIVE Obesity affecting (Acute) nl 1tm glucola. encouraged healthy weight gain. after 32 weeks plan growth US q 4 weeks and weekly nsts and testing until delivery. 01/04 nl growth, 02/01 nl growth, 02/26 nl growth (Acute) declined genetic, carrier and NTD. Normal anatomy Supervision of high risk , antepartum (Acute) PRR ULISES 03/26/2020 surprise Spouse: Jun Subjective: Patient doing well without complaints. Tolerating PO. Ambulating and voiding without difficulty. feeding well. Denies chest pain, shortness of breath, calf pain/swelling, fevers, chills, lightheadedness. - Physical Exam Vitals/I&O's: Vital Signs Temp Pulse Resp BP Pulse Ox 98.8 F 55 L 16 118/53 L 98 04/04/20 02:02 04/04/20 02:06 04/04/20 02:02 04/04/20 02:06 04/04/20 02:05 Oxygen Delivery Method Room Air Weight: 311 lb Body Mass Index (BMI) 50.1 Intake and Output for Last 24 Hours 04/02/20 04/03/20 04/04/20 23:59 23:59 23:59 Intake Total 4020.54 / 4020.54 2110.03 / 2110.03 Output Total 1984 4100 / 4100 Balance 2035.54 / 2035.54 -1988.97 / -1988.97 General: Alert, Oriented x3 Current Medications Acetaminophen (Acetaminophen 500 Mg Tablet) 1,000 mg PO Q8H PRN PRN PRN Reason: Pain Score 1-3 Last Admin: 04/03/20 20:13 Dose: 1,000 mg Documented by: Bisacodyl (Bisacodyl 10 Mg Suppository) 10 mg RECTAL UD PRN PRN Reason: If no BM Dibucaine (Dibucaine 30 Gm Tube) 1 applic TOPICAL TID PRN PRN; Protocol PRN Reason: Discomfort Hydrocortisone (Hydrocortisone 2.5% Crm) 1 applic TOPICAL TID PRN PRN; Protocol PRN Reason: Discomfort Naproxen (Naproxen 250 Mg Tablet) 500 mg PO Q8H PRN PRN PRN Reason: Pain Score 1-3 Ondansetron HCl (Ondansetron 4 Mg/2 Ml Vial) 4 mg IV Q4H PRN PRN PRN Reason: Nausea Oxycodone HCl (Oxycodone 5 Mg Tablet) 5 - 10 mg PO Q4H PRN PRN PRN Reason: Pain Score 4-10 Senna/Docusate Sodium (Senna/Docusate Sodium 1 Tablet) 1 - 2 tablet PO DAILY PRN PRN PRN Reason: Constipation Last Admin: 04/03/20 09:22 Dose: 2 tablet Documented by: Simethicone (Simethicone 80 Mg Tablet) 80 mg PO PCHS PRN PRN Reason: Indigestion/Stomach pain Sodium Chloride (0.9% Saline Lock 10 Ml Syringe) 5 - 15 ml IV UD PRN PRN Reason: SALINE FLUSH Last Admin: 04/03/20 09:22 Dose: 10 ml Documented by: Medical Necessity - Tobacco Use Smoking Status: Never smoker Assessment/Plan All Active Problems (Last Reviewed 03/29/20 @ 15:41 by Rebecca Tai) Encounter for induction of labor (Acute) Post-dates (Acute) Preeclampsia, severe (Acute) 39 weeks gestation of (Acute) Obesity affecting (Acute) (Acute) Supervision of high risk , antepartum (Acute) s/p PPD # 2 1. routine post delivery care 2. breast feeding- support given 3. rh positive 4. rubella immune
== END 2020-04-04 11:55 | disposition home or self-care (01) | DRG 807 ==
PROVIDERS: Admitting Provider Obstetrics & Gynecology; PCP Family Medicine; Visit Provider Obstetrics & Gynecology
DX: O48.0 Post-term pregnancy (principal); O14.14 Severe pre-eclampsia complicating childbirth; E66.01 Morbid (severe) obesity due to excess calories; O99.214 Obesity complicating childbirth; Z3A.41 41 weeks gestation of pregnancy; Z37.0 Single live birth
CPT/HCPCS: 59025; 59050; 82565; 82570; 84156; 84450; 84460; 84550; 85025; 85027; 86850; 86900; 86901; 99218; J7030; J7120; A4216; G0378; J2405; J3490

== ENCOUNTER 2020-04-07 11:45 | Outpatient (CLI) | payer OTHER, SELFPAY ==
[2020-04-08 09:30] VITALS: BMI 46.4
== END 2020-04-07 12:24 | disposition home or self-care (01) ==
LOC: TELEHEALTH 04-08 13:35
PROVIDERS: PCP Family Medicine; Visit Provider Registered Nurse Lactation Consultant
DX: Z39.1 Encounter for care and examination of lactating mother (principal)
CPT/HCPCS: 96158; 96159

== ENCOUNTER 2020-04-07 18:50 | Outpatient (CLI) | payer OTHER, SELFPAY ==
[2020-04-08 09:30] VITALS: BMI 46.4
== END 2020-04-07 23:59 | disposition home or self-care (01) ==
LOC: TELEHEALTH 04-08 13:40
PROVIDERS: PCP Family Medicine; Visit Provider Registered Nurse Lactation Consultant
DX: Z39.1 Encounter for care and examination of lactating mother (principal)
CPT/HCPCS: 96158; 96159

== ENCOUNTER 2020-07-16 08:09 | Outpatient (RCR) | payer OTHER, SELFPAY ==
[2020-02-09 15:44] VITALS: BMI 47.5
[2020-05-14 10:18] VITALS: BMI 47.2
== END 2020-07-16 23:59 ==
LOC: EMPH 08:09
PROVIDERS: PCP Family Medicine; Visit Provider Family Medicine Geriatric Medicine
DX: Z03.818 Encounter for observation for suspected exposure to other biological agents ruled out (principal)
CPT/HCPCS: 87426

== ENCOUNTER 2020-08-07 08:05 | Outpatient (RCR) | payer OTHER, SELFPAY ==
[2020-05-14 10:18] VITALS: BMI 47.2
== END 2020-08-16 23:59 ==
LOC: EMPH 08:05
PROVIDERS: PCP Family Medicine; Visit Provider Family Medicine Geriatric Medicine
DX: Z03.818 Encounter for observation for suspected exposure to other biological agents ruled out (principal)
CPT/HCPCS: 87426

== ENCOUNTER 2020-08-28 09:29 | Outpatient (RCR) | payer OTHER, SELFPAY ==
[2020-05-14 10:18] VITALS: BMI 47.2
== END 2020-09-15 23:59 ==
LOC: EMPH 09:29
PROVIDERS: PCP Family Medicine; Visit Provider Family Medicine Geriatric Medicine
DX: Z03.818 Encounter for observation for suspected exposure to other biological agents ruled out (principal)
CPT/HCPCS: 87426

== ENCOUNTER 2020-09-16 19:16 | Outpatient (RCR) | payer OTHER, SELFPAY ==
[2020-05-14 10:18] VITALS: BMI 47.2
== END 2020-10-16 23:59 ==
LOC: EMPH 19:16
PROVIDERS: PCP Family Medicine; Visit Provider Family Medicine Geriatric Medicine
DX: Z03.818 Encounter for observation for suspected exposure to other biological agents ruled out (principal)
CPT/HCPCS: 87426

== ENCOUNTER 2020-11-15 07:40 | Outpatient (RCR) | payer OTHER, SELFPAY ==
[2020-05-14 10:18] VITALS: BMI 47.2
== END 2020-11-16 23:59 ==
LOC: EMPH 07:40
PROVIDERS: PCP Family Medicine; Visit Provider Family Medicine Geriatric Medicine
DX: Z03.818 Encounter for observation for suspected exposure to other biological agents ruled out (principal)
CPT/HCPCS: 87426

== ENCOUNTER 2020-12-06 07:33 | Outpatient (RCR) | payer OTHER, SELFPAY ==
[2020-11-17 00:21] VITALS: BMI 47.2
== END 2020-12-16 23:59 ==
LOC: EMPH 07:33
PROVIDERS: PCP Family Medicine; Referring Provider Family Medicine Geriatric Medicine; Visit Provider Family Medicine Geriatric Medicine
DX: Z03.818 Encounter for observation for suspected exposure to other biological agents ruled out (principal)
CPT/HCPCS: 87426; 87635; U0005; U0003

== ENCOUNTER 2021-01-01 06:41 | Outpatient (RCR) | payer OTHER, SELFPAY ==
[2020-12-17 00:16] VITALS: BMI 47.2
== END 2021-01-16 23:59 ==
LOC: EMPH 06:41
PROVIDERS: PCP Family Medicine; Referring Provider Family Medicine Geriatric Medicine; Visit Provider Family Medicine Geriatric Medicine
DX: Z03.818 Encounter for observation for suspected exposure to other biological agents ruled out (principal)
CPT/HCPCS: 87426

== ENCOUNTER 2021-01-22 07:50 | Outpatient (RCR) | payer OTHER, SELFPAY ==
[2021-01-17 00:12] VITALS: BMI 47.2
== END 2021-02-15 23:59 ==
LOC: EMPH 07:50
PROVIDERS: PCP Family Medicine; Referring Provider Family Medicine Geriatric Medicine; Visit Provider Family Medicine Geriatric Medicine
DX: Z03.818 Encounter for observation for suspected exposure to other biological agents ruled out (principal)
CPT/HCPCS: 87426

== ENCOUNTER 2021-02-25 14:12 | Outpatient (RCR) | payer OTHER, SELFPAY ==
[2021-02-16 00:18] VITALS: BMI 47.2
== END 2021-03-18 23:59 ==
LOC: EMPH 14:12
PROVIDERS: PCP Family Medicine; Referring Provider Family Medicine Geriatric Medicine; Visit Provider Family Medicine Geriatric Medicine
DX: Z03.818 Encounter for observation for suspected exposure to other biological agents ruled out (principal)
CPT/HCPCS: 87426

== ENCOUNTER → 2021-08-05 | Outpatient (CLI) | payer OTHER, SELFPAY ==
[2021-08-05 15:50] LABS: Absolute Lymphocyte Count 2.86 X10^3/uL (0.83-4.51); Absolute Neutrophil Count 6.5 X10^3/uL (2.0-7.7); Basophil# 0.02 X10^3/uL; Basophil% 0.2 % (0-1); Eosinophil# 0.08 X10^3/uL; Eosinophils% 0.8 % (0-5); Hematocrit 37.3 % (37-47); Hemoglobin 12.4 g/dL (12.0-15.0); Lymphocyte # 2.86 X10^3/ul (0.83-4.51); Lymphocyte % 28.3 % (19-41); Mean Corp Hgb Conc 33.2 g/dL (32-36); Mean Corpuscular Hgb 29.5 pg (27.0-32.0); Mean Corpuscular Volume 88.8 fL (81-99); Mean Platelet Vol. 8.9 fl (6.2-12.0); Monocyte# 0.65 X10^3/uL; Monocyte% 6.4 % (0-10); NRBC Flagged by Analyzer 0 % (0-5); Neutrophil # 6.46 X10^3/uL (2.7-7.7); Neutrophil % 63.8 % (47-70); Platelet Count 355 K/mm3 (150-450); RBC Distribution Width CV 12.5 % (11.6-14.6); RBC Distribution Width SD 41.1 fl (35.1-43.9); White Blood Count 10.1 K/mm3 (4.4-11.0)
[2021-08-05 16:34] LABS: ALB/GLOB Ratio 1.1 RATIO (0.9-2.4); AST(SGOT) 14 U/L (15-37); Alanine Aminotransfer ALT/SGPT 25 U/L (13-56); Albumin, Serum 3.6 g/dL (3.2-5.0); Alkaline Phosphatase 33 U/L (45-117); Anion Gap 4 (5-15); BUN 7 mg/dL (7-18); BUN/Creat Ratio 11.4 RATIO (10-20); Calcium,Total 8.9 mg/dL (8.5-10.1); Chloride 105 mmol/L (98-107); Creatinine, Serum 0.61 mg/dL (0.55-1.02); EST Glomerular Filtration Rate 121 mL/min (>60); Est Glom Filt Rate - Afr Amer 146 mL/min (>60); Globulin 3.4 g/dL (2.2-4.2); Glucose 149 mg/dL (74-106); Glucose Challenge Gest 1H 50g 149 mg/dL (70-140); Potassium 3.4 mmol/L (3.5-5.1); Sodium Level 136 mmol/L (136-145)
[2021-08-05 19:03] LABS: Protein, Urine (Random) < 6.0 mg/dL (<11.9)
[2021-08-05 19:05] LABS: Amphetamine Urine VISTA NEGATIVE (<1000 ng/mL); Barbiturate Urine VISTA NEGATIVE (< 200 ng/mL); Benzodiazepine Urine VISTA NEGATIVE (< 200 ng/mL); Cocaine Urine VISTA NEGATIVE (< 300 ng/mL); Ecstacy Urine VISTA NEGATIVE (< 500 ng/mL); Methadone Urine VISTA NEGATIVE (< 300 ng/mL); PCP Urine VISTA NEGATIVE (< 25 ng/mL); THC Urine VISTA NEGATIVE (< 50 ng/mL); Vista UDS pH Range 6
[2021-08-08 09:34] LABS: HIV - WCH Non-Reactive (Nonreactive); Hepatitis B Surface Antigen Non-Reactive (Nonreactive); Hepatitis C Antibody Non-Reactive (Nonreactive); Rubella IgG Reactive (Nonreactive); Syphilis Antibodies Non-reactive
[2021-08-08 20:07] LABS: Chlamydia By Nucleic Acid AMP Negative (Negative)
[2021-08-08 20:20] LABS: Gonococcus By Nucleic Acid AMP Negative (Negative)
== END | disposition home or self-care (01) ==
PROVIDERS: PCP Family Medicine; Referring Provider Obstetrics & Gynecology; Visit Provider Obstetrics & Gynecology
DX: Z34.90 Encounter for supervision of normal pregnancy, unspecified, unspecified trimester (principal); Z87.59 Personal history of other complications of pregnancy, childbirth and the puerperium
CPT/HCPCS: 36415; 80053; 80307; 82570; 82950; 84156; 85025; 86703; 86762; 86780; 86803; 86850; 86900; 86901; 87086; 87088; 87340; 87491; 87591

== ENCOUNTER → 2021-08-11 | Outpatient (CLI) | payer OTHER, SELFPAY ==
[2021-08-11 07:35] LABS: Glucose GTT-Gestation. Fasting 99 mg/dL (<105)
[2021-08-11 09:07] LABS: Glucose GTT-Gestational 1 Hr 139 mg/dL (<190)
[2021-08-11 10:15] LABS: Glucose GTT-Gestational 2 Hr 114 mg/dL (<165)
[2021-08-11 11:02] LABS: Glucose GTT-Gestational 3 Hr 66 L (<145)
== END | disposition home or self-care (01) ==
LOC: LAB 07:02
PROVIDERS: PCP Family Medicine; Referring Provider Obstetrics & Gynecology; Visit Provider Obstetrics & Gynecology
DX: Z13.1 Encounter for screening for diabetes mellitus (principal)
CPT/HCPCS: 36415; 82951; 82952

== ENCOUNTER → 2021-08-12 | Outpatient (CLI) | payer OTHER, SELFPAY ==
--- NOTE | 2021-08-12 16:15 | EKG12_ITS ---
Test Reason : PRENANCY Blood Pressure : / mmHG Vent. Rate : 059 BPM Atrial Rate : 059 BPM P-R Int : 160 ms QRS Dur : 094 ms QT Int : 414 ms P-R-T Axes : 028 -02 024 degrees QTc Int : 409 ms Sinus bradycardia with sinus arrhythmia Voltage criteria for left ventricular hypertrophy Abnormal ECG Confirmed by DEVI OWENS, BECCA ([id number]), food editor DEYANIRA OMALLEY ([id number]) on 08/16/2021 1:03:43 PM Referred By: Kyung Cruz Confirmed By:BECCA QUINONEZ MD
== END | disposition home or self-care (01) ==
LOC: PSN 16:13
PROVIDERS: PCP Family Medicine; Referring Provider Obstetrics & Gynecology; Visit Provider Obstetrics & Gynecology
DX: O16.9 Unspecified maternal hypertension, unspecified trimester (principal)
CPT/HCPCS: 93005

== ENCOUNTER → 2021-11-30 | Outpatient (CLI) | payer OTHER, SELFPAY ==
--- NOTE | 2021-11-30 13:45 | ECHOD_ITS ---
Reason For Study: HTN Procedure This was a 2D Doppler, Color Flow transthoracic echocardiogram. Exam performed in department. Left Ventricle Normal left ventricle. Left ventricular systolic function is normal. The estimated ejection fraction is 60 %. No regional wall motion abnormalities noted. Right Ventricle Normal RV size. Normal systolic function. Atria Normal left atrium. Normal right atrium. Mitral Valve Normal mitral valve. Tricuspid Valve Normal tricuspid valve. Aortic Valve Normal aortic valve. Trisinus/trileaflet aortic valve. Pulmonic Valve Normal pulmonic valve. Great Vessels Normal aortic root. The pulmonary artery is normal size. Normal inferior vena cava. Pericardium/Pleural No pericardial effusion. MMode/2D Measurements & Calculations LVIDd: 5.3 cm IVSd: 1.1 cm Ao root diam: 3.1 cm LVIDs: 3.0 cm LVPWd: 0.92 cm RVDd: 3.9 cm FS: 43.5 % LAV(MOD-sp4): 80.8 ml LVAd ap4: 37.4 cm2 SV(MOD-sp4): 93.3 ml LVLd ap4: 8.3 cm EDV(MOD-sp4): 135.6 ml EDV(sp4-el): 142.9 ml LVAs ap4: 17.8 cm2 LVLs ap4: 6.5 cm ESV(MOD-sp4): 42.3 ml ESV(sp4-el): 41.5 ml EF(MOD-sp4): 68.8 % EF(sp4-el): 70.9 % SV(sp4-el): 101.4 ml LA A4 area: 25.6 cm2 LA dimension(2D): 4.2 cm RA A4 area: 20.6 cm2 Time Measurements MV dec time: 0.20 sec Doppler Measurements & Calculations MV E max stormy: 88.0 cm/sec MV V2 max: 116.7 cm/sec MV dec slope: 587.2 cm/sec2 MV A max stormy: 77.2 cm/sec MV max P.5 mmHg MV E/A: 1.1 MV V2 mean: 72.3 cm/sec MV mean P.4 mmHg MV V2 VTI: 29.1 cm Ao V2 max: 139.4 cm/sec LV V1 max: 141.5 cm/sec PA V2 max: 99.4 cm/sec Ao max P.8 mmHg LV V1 max P.0 mmHg Ao V2 mean: 99.2 cm/sec LV V1 mean P.7 mmHg Ao mean P.5 mmHg LV V1 mean: 102.8 cm/sec Ao V2 VTI: 33.8 cm LV V1 VTI: 34.3 cm ECHO/Echo Complete Interpretation Summary Normal left ventricle. Left ventricular systolic function is normal. The estimated ejection fraction is 60 %. Structurally normal valves. Ordering Physician: Nico Cruz Referring Physician: Nico Cruz Performed By: Ann Marie Drake RCS
[2021-11-30 15:38] LABS: Absolute Lymphocyte Count 2.44 X10^3/uL (0.83-4.51); Absolute Neutrophil Count 8.3 X10^3/uL (2.0-7.7); Basophil# 0.01 X10^3/uL; Basophil% 0.1 % (0-1); Eosinophil# 0.03 X10^3/uL; Eosinophils% 0.3 % (0-5); Hematocrit 34.6 % (37-47); Hemoglobin 11.3 g/dL (12.0-15.0); Lymphocyte # 2.44 X10^3/ul (0.83-4.51); Lymphocyte % 21.5 % (19-41); Mean Corp Hgb Conc 32.7 g/dL (32-36); Mean Corpuscular Hgb 28.8 pg (27.0-32.0); Mean Platelet Vol. 9.5 fl (6.2-12.0); Monocyte# 0.55 X10^3/uL; Monocyte% 4.9 % (0-10); NRBC Flagged by Analyzer 0 % (0-5); Neutrophil # 8.25 X10^3/uL (2.7-7.7); Neutrophil % 72.8 % (47-70); Platelet Count 309 K/mm3 (150-450); RBC Distribution Width CV 12.9 % (11.6-14.6); RBC Distribution Width SD 42.1 fl (35.1-43.9); Red Blood Count 3.93 M/mm3 (4.2-5.4); White Blood Count 11.3 K/mm3 (4.4-11.0)
[2021-11-30 16:18] LABS: Glucose Challenge Gest 1H 50g 148 mg/dL (70-140)
== END | disposition home or self-care (01) ==
PROVIDERS: Nurse Practitioner Women's Health; PCP Family Medicine; Referring Provider Internal Medicine Cardiovascular Disease; Visit Provider Internal Medicine Cardiovascular Disease
DX: O16.9 Unspecified maternal hypertension, unspecified trimester (principal); R94.31 Abnormal electrocardiogram [ECG] [EKG]
CPT/HCPCS: 36415; 82950; 85025; 93306

== ENCOUNTER → 2021-12-09 | Outpatient (CLI) | payer OTHER, SELFPAY ==
[2021-12-09 07:31] LABS: Glucose GTT-Gestation. Fasting 99 mg/dL (<105)
[2021-12-09 08:58] LABS: Glucose GTT-Gestational 1 Hr 151 mg/dL (<190)
[2021-12-09 10:05] LABS: Glucose GTT-Gestational 2 Hr 124 mg/dL (<165)
[2021-12-09 11:24] LABS: Glucose GTT-Gestational 3 Hr 94 L (<145)
== END | disposition home or self-care (01) ==
LOC: LAB 06:52
PROVIDERS: PCP Family Medicine; Referring Provider Obstetrics & Gynecology; Visit Provider Obstetrics & Gynecology
DX: Z13.1 Encounter for screening for diabetes mellitus (principal)
CPT/HCPCS: 36415; 82951; 82952

== ENCOUNTER → 2022-01-06 | Outpatient (CLI) | payer OTHER, SELFPAY ==
--- NOTE | 2022-01-06 16:27 | US_ITS ---
STUDY: SECOND AND THIRD TRIMESTER OBSTETRICAL ULTRASOUND REASON FOR EXAM: Female, 31 years old growth TECHNIQUE: Transabdominal PRIOR ULTRASOUND: None. FINDINGS: There is a single intrauterine fetus. The fetus is in a breech presentation. There is demonstrated cardiac activity with a heart rate of 153 bpm. There is a normal amniotic fluid volume. The largest amniotic fluid pocket measures 8.1 cm. The amniotic fluid index (TARUN) is 12.6 cm. The placenta is posterior and not low-lying. There are Grade 1 placental changes. The cervix measures 3 cm in length. The bilateral adnexal regions are normal. BPD: 8.1 cm = 32 weeks, 3 day(s) HC: 32.3 cm = 36 weeks, 3 day(s) AC: 30 cm = 33 weeks, 6 day(s) FL: 6.2cm = 32 weeks, 0 day(s) EGA by ultrasound: 34 weeks 1 day(s) ULISES by ultrasound: 02/16/2022 Estimated weight: 2130 grams Weight percentile: 64% US/OB Limited With Biometrics IMPRESSION: Living intrauterine with estimated gestational age of 34 weeks and 1 day. EFW is 2130g which is in the 64th percentile. Electronically Signed: Tulio Goetz MD at 22:18 EDT ,
== END | disposition home or self-care (01) ==
LOC: US 16:22
PROVIDERS: PCP Family Medicine; Referring Provider Nurse Practitioner Women's Health; Visit Provider Nurse Practitioner Women's Health
DX: O16.9 Unspecified maternal hypertension, unspecified trimester (principal)
CPT/HCPCS: 76816

== ENCOUNTER → 2022-01-13 | Outpatient (CLI) | payer OTHER, SELFPAY ==
--- NOTE | 2022-01-13 16:15 | US_ITS ---
STUDY: SECOND AND THIRD TRIMESTER OBSTETRICAL ULTRASOUND - LIMITED REASON FOR EXAM: Female, 31 years old. TARUN -- 33 weeks PRIOR ULTRASOUND: 10.. TECHNIQUE: Transabdominal TECHNICAL QUALITY: Adequate. FINDINGS: There is a single intrauterine fetus. The fetus is in a cephalic presentation. There is demonstrated cardiac activity with a heart rate of 147 bpm. There is a normal amniotic fluid volume. The largest amniotic fluid pocket measures 5.9 cm. The amniotic fluid index (TARUN) is 20.8 cm. The placenta is posterior in location and is not low lying. There are Grade 1 placental changes. The cervix measures cm in length: 3.9. age by prior US: 35 weeks, 1 days. ULISES by prior US: 12.1.22. Age by LMP: 33 weeks, 3 days. ULISES by LMP: 12.13.22. US/OB Limited (No Biometrics) IMPRESSION: There is a single live intrauterine with a heart rate of 147 bpm. TARUN 20.8 Electronically Signed: Neo Ferraro MD at 17:16 EDT ,
== END | disposition home or self-care (01) ==
LOC: OPUS 16:14
PROVIDERS: PCP Family Medicine; Referring Provider Nurse Practitioner Women's Health; Visit Provider Nurse Practitioner Women's Health
DX: O16.3 Unspecified maternal hypertension, third trimester (principal); Z3A.35 35 weeks gestation of pregnancy
CPT/HCPCS: 76815

== ENCOUNTER → 2022-01-19 | Outpatient (CLI) | payer OTHER, SELFPAY ==
--- NOTE | 2022-01-19 16:27 | US_ITS ---
STUDY: US OB Limited 1 or more fetus REASON FOR EXAM: Female, 31 years old TARUN -- 34 weeks LMP: 3 10/23/2021 correlating with 34 weeks 2 days gestation estimated delivery date 02/28/2022 PRIOR ULTRASOUND: January 13, 2022. TECHNIQUE: Transabdominal ultrasound grayscale and color flow and M-mode Doppler FINDINGS: There is a single intrauterine fetus. The fetus is in a cephalic presentation. There is demonstrated cardiac activity with a heart rate of 129 bpm. There is a normal amniotic fluid volume. The largest amniotic fluid pocket measures 4.1 cm. The amniotic fluid index (TARUN) is 11.2 cm. The placenta is posterior, grade 2, without evidence of abruption or previa. The cervix measures 3.8 cm in length. US/OB Limited (No Biometrics) IMPRESSION: Single live intrauterine with current cephalic presentation. TARUN 11.2 cm Cervix long and closed. Electronically Signed: Sesar Denson MD at 2:19 EDT ,
== END | disposition home or self-care (01) ==
LOC: US 16:25
PROVIDERS: PCP Family Medicine; Referring Provider Nurse Practitioner Women's Health; Visit Provider Nurse Practitioner Women's Health
DX: O16.3 Unspecified maternal hypertension, third trimester (principal); Z3A.34 34 weeks gestation of pregnancy
CPT/HCPCS: 76815

== ENCOUNTER → 2022-01-25 | Outpatient (CLI) | payer OTHER, SELFPAY ==
--- NOTE | 2022-01-25 16:24 | US_ITS ---
STUDY: SECOND AND THIRD TRIMESTER OBSTETRICAL ULTRASOUND - LIMITED REASON FOR EXAM: Female, 31 years old. TARUN -- 35 weeks PRIOR ULTRASOUND: 11.3.22 TECHNIQUE: Transabdominal TECHNICAL QUALITY: Adequate. FINDINGS: There is a single intrauterine fetus. The fetus is in a cephalic presentation. There is demonstrated cardiac activity with a heart rate of 132 bpm. There is a normal amniotic fluid volume. The largest amniotic fluid pocket measures 6.2 cm. The amniotic fluid index (TARUN) is 13.3 cm. The placenta is posterior in location and is not low lying. There are Grade 1 placental changes. The cervix measures cm in length: 3.7. Age by LMP: 35 weeks, 1 days. ULISES by LMP: 12.. US/OB Limited (No Biometrics) IMPRESSION: There is a single live intrauterine with a heart rate of 132 bpm. Age by LMP: 35 weeks, 1 days. ULISES by LMP: 12... Electronically Signed: Neo Ferraro MD at 21:24 EST Reading Location ID and State: [id number] / [place] , Service support ,
== END | disposition home or self-care (01) ==
LOC: US 16:21
PROVIDERS: PCP Family Medicine; Referring Provider Nurse Practitioner Women's Health; Visit Provider Nurse Practitioner Women's Health
DX: O16.3 Unspecified maternal hypertension, third trimester (principal); Z3A.35 35 weeks gestation of pregnancy
CPT/HCPCS: 76815

== ENCOUNTER → 2022-01-31 | Outpatient (CLI) | payer OTHER, SELFPAY ==
--- NOTE | 2022-01-31 16:18 | US_ITS ---
STUDY: SECOND AND THIRD TRIMESTER OBSTETRICAL ULTRASOUND REASON FOR EXAM: Female, 31 years old growth TECHNIQUE: Transabdominal PRIOR ULTRASOUND: None. FINDINGS: There is a single intrauterine fetus. The fetus is in a cephalic presentation. There is demonstrated cardiac activity with a heart rate of 157 bpm. There is a normal amniotic fluid volume. The largest amniotic fluid pocket measures 4.4 cm. The amniotic fluid index (TARUN) is 11.2 cm. The placenta is posterior and not low-lying. There are Grade 1 placental changes. The cervix measures 3.8 cm in length. The bilateral adnexal regions are normal. BPD: 9.1 cm = 36 weeks, 5 day(s) HC: 33.5 cm = 38 weeks, 3 day(s) AC: 33 cm = 37 weeks, 0 day(s) FL: 6.8cm = 35 weeks, 1 day(s) EGA by ultrasound: 36 weeks 6 day(s) ULISES by ultrasound: 02/22/2022 Estimated weight: 2970 grams Weight percentile: 66% US/OB Limited With Biometrics IMPRESSION: Living intrauterine with estimated gestational age of 36 weeks and 6 days. EFW is 2970g which is in the 66th percentile. Electronically Signed: Tulio Goetz MD at 18:41 EST ,
== END | disposition home or self-care (01) ==
PROVIDERS: PCP Family Medicine; Referring Provider Nurse Practitioner Women's Health; Visit Provider Nurse Practitioner Women's Health
DX: O16.9 Unspecified maternal hypertension, unspecified trimester (principal); Z3A.36 36 weeks gestation of pregnancy
CPT/HCPCS: 76816

== ENCOUNTER → 2022-02-03 | Outpatient (CLI) | payer OTHER, SELFPAY | END | disposition home or self-care (01) | LOC: LABSPEC 02-06 08:04 | PROVIDERS: PCP Family Medicine; Visit Provider Obstetrics & Gynecology | DX: O09.90 Supervision of high risk pregnancy, unspecified, unspecified trimester (principal) | CPT/HCPCS: 87081 ==

== ENCOUNTER → 2022-02-08 | Outpatient (CLI) | payer OTHER, SELFPAY ==
--- NOTE | 2022-02-08 16:21 | US_ITS ---
STUDY: SECOND AND THIRD TRIMESTER OBSTETRICAL ULTRASOUND - LIMITED REASON FOR EXAM: Female, 31 years old. TARUN -- 37 WEEKS PRIOR ULTRASOUND: 11.15.22 TECHNIQUE: Transabdominal TECHNICAL QUALITY: Adequate. FINDINGS: There is a single intrauterine fetus. The fetus is in a cephalic presentation. There is demonstrated cardiac activity with a heart rate of 149 bpm. There is a normal amniotic fluid volume. The largest amniotic fluid pocket measures 5.6 cm. The amniotic fluid index (TARUN) is 12.6 cm. The placenta is posterior in location and is not low lying. There are Grade 1 placental changes. The cervix measures cm in length: 3.8. age by prior US: 38 weeks, 0 days. ULISES by prior US: 12.7.22. Age by LMP: 37 weeks, 1 days. ULISES by LMP: 12.13.22. US/OB Limited (No Biometrics) IMPRESSION: There is a single live intrauterine with a heart rate of 149 bpm. TARUN: 12.6 cm. Electronically Signed: Neo Ferraro MD at 17:13 EST ,
== END | disposition home or self-care (01) ==
LOC: OPUS 16:19
PROVIDERS: PCP Family Medicine; Referring Provider Nurse Practitioner Women's Health; Visit Provider Nurse Practitioner Women's Health
DX: O16.9 Unspecified maternal hypertension, unspecified trimester (principal); Z3A.38 38 weeks gestation of pregnancy
CPT/HCPCS: 76815

== ENCOUNTER → 2022-02-13 | Outpatient (CLI) | payer OTHER, SELFPAY ==
--- NOTE | 2022-02-13 16:22 | US_ITS ---
STUDY: SECOND AND THIRD TRIMESTER OBSTETRICAL ULTRASOUND - LIMITED REASON FOR EXAM: Female, 31 years old TARUN -- 37 weeks TECHNIQUE: Transabdominal PRIOR ULTRASOUND: 02/08/2022 FINDINGS: There is a single intrauterine fetus. The fetus is in a cephalic presentation. There is demonstrated cardiac activity with a heart rate of 136 bpm. There is a normal amniotic fluid volume. The largest amniotic fluid pocket measures 4.5 cm. The amniotic fluid index (TARUN) is 10.7 cm. The placenta is posterior. There are Grade 1 placental changes. The cervix is not visualized. The adnexal regions are not visualized. US/OB Limited (No Biometrics) IMPRESSION: Living intrauterine with estimated gestational age of 38 weeks and 5 days. Normal TARUN of 10.7 cm. Electronically Signed: Tulio Goetz MD at 17:58 EST ,
== END | disposition home or self-care (01) ==
LOC: OPUS 16:21
PROVIDERS: PCP Family Medicine; Referring Provider Nurse Practitioner Women's Health; Visit Provider Nurse Practitioner Women's Health
DX: O16.3 Unspecified maternal hypertension, third trimester (principal); Z3A.38 38 weeks gestation of pregnancy
CPT/HCPCS: 76815

== ENCOUNTER 2022-02-21 18:00 | Inpatient (IN) | payer OTHER, SELFPAY ==
[2022-02-21 18:30] VITALS: BP 166/80; PULSE 71
[2022-02-21 19:01] VITALS: BP 189/93; PULSE 71
[2022-02-21 19:17] VITALS: BP 167/80; PULSE 71
[2022-02-21 19:17] LABS: Absolute Lymphocyte Count 2.97 X10^3/uL (0.83-4.51); Absolute Neutrophil Count 7.2 X10^3/uL (2.0-7.7); Basophil# 0.01 X10^3/uL; Basophil% 0.1 % (0-1); Eosinophil# 0.04 X10^3/uL; Eosinophils% 0.3 % (0-5); Hematocrit 36.7 % (37-47); Lymphocyte # 2.97 X10^3/ul (0.83-4.51); Mean Corp Hgb Conc 32.7 g/dL (32-36); Mean Corpuscular Volume 88.6 fL (81-99); Mean Platelet Vol. 10.3 fl (6.2-12.0); Monocyte% 10.5 % (0-10); NRBC Flagged by Analyzer 0 % (0-5); Neutrophil # 7.18 X10^3/uL (2.7-7.7); Neutrophil % 62.8 % (47-70); Platelet Count 288 K/mm3 (150-450); RBC Distribution Width CV 13.2 % (11.6-14.6); RBC Distribution Width SD 42.9 fl (35.1-43.9); Red Blood Count 4.14 M/mm3 (4.2-5.4); White Blood Count 11.4 K/mm3 (4.4-11.0)
[2022-02-21 19:30] VITALS: BP 150/72; PULSE 67
[2022-02-21] MEDS: Lactated Ringers 1,000 ML 50 ML IV (19:30)
[2022-02-21 19:34] VITALS: BMI 47.6
[2022-02-21] MEDS: Labetalol 100 MG Tablet PO (19:54)
[2022-02-21 19:58] LABS: AST(SGOT) 15 U/L (15-37); Alanine Aminotransfer ALT/SGPT 25 U/L (13-56); Creatinine, Serum 0.42 mg/dL (0.55-1.02); EST Glomerular Filtration Rate 183 mL/min (>60); Est Glom Filt Rate - Afr Amer 222 mL/min (>60); Estimated Creatinine Clearance 181.68 ml/min; Uric Acid 3.3 mg/dL (2.6-6.0)
[2022-02-21] MEDS: miSOPROStol 25 MCG TABLET BUCCAL (20:06)
[2022-02-21 20:09] LABS: Protein, Urine (Random) < 6.0 mg/dL (<11.9)
[2022-02-21 20:12] LABS: Prothrombin Time (Protime)PT. 13.1 SECONDS (11.7-14.9)
[2022-02-21 20:26] VITALS: BP 148/70; PULSE 66
[2022-02-22] VITALS (46 sets, daily range): BP systolic 103–172; BP diastolic 57–95; PULSE 48–96; TEMP 35.8–36.8; O2SAT 81–100
[2022-02-22] MEDS: miSOPROStol 25 MCG TABLET BUCCAL ×2 (00:07→04:16)
--- NOTE | 2022-02-22 01:48 | HP.PCM.OB_ITS ---
HPI - General General Date of Admission: 02/21/22 HPI Narrative SENDY MEDRANO, is a 31 F who presents for IOL secondary to HTN in managed with labetalol. Maternal Data Information ULISES Calculator Estimated Delivery Date Method Current WG Current Estimate 02/28/22 LMP (Certain) 39w 1d Other Estimates 02/26/22 Ultrasound #1 39w 3d PFSH PFSH Medical History Essential hypertension Migraines Obesity Home Medications multivitamin no.47-iron fum 27 mg-folate no.1 1 mg-dha 300 mg capsule (PNV-DHA) 1 tab PO DAILY 09/01/19 [History Last Taken 02/21/22629] aspirin 81 mg tablet,delayed release (Adult Aspirin Regimen) 81 mg PO DAILY 10/28/21 [History Last Taken 02/21/22629] labetalol 100 mg tablet 100 mg PO BID gestational htn 02/21/22 [History Last Taken 02/21/22629] valacyclovir 500 mg tablet (Valtrex) 500 mg PO QDAY see primary physician 02/21/22 [History Last Taken 02/21/22 06:30] Allergy/AdvReac Type Severity Reaction Status Date / Time No Known Allergies Allergy Verified 02/21/22 19:39 Family History Mother Hypertension Grandfather Cancer Aunt Cancer Grandmother CVA (cerebral vascular accident) Surgical History History of tonsillectomy Social History adopted: No household members: spouse current occupational status: employed current occupation: [employer] history of recent travel: Yes out of state: Yes sexually active: Yes Smoking Status: Never smoker alcohol intake: current alcohol intake frequency: holidays/special occasions only substance use type: does not use caffeine: Yes what type of physical activity do you participate in: none seatbelt use: always do you feel safe at home: Yes additional social history: LopezKatelyn dyer Patient is an RN History 2 Elective abortions Hx Para 1 Spontaneous abortions Hx # Term Pregnancies Ectopic pregnancies Hx # Pregnancies Multiple births # of living children 1 Past Pregnancies Del. Date Name GA/Weeks Outcome Route Bth Weight Gen [facility] Jeremi [facility] live - full term Male epidur al [facility] Delivery Date: 04/02/20 Last Updated by: Lorraine Ruiz pre-e; IoL post dates Visit Details Expected Delivery Route/Plan Labor Preferences- CB/BF classes: no labor support person: Lopez labor intervention preferences: [] pain management options preferred: epidural cut cord/dad catch: yes : yes PP control planned: undecided. discussed possible routes of delivery and associated risks: [] special requests: [] Plans Covid status: discussed Flu vaccine: declines Tdap vaccine: declines Rhogam: NA LARC form signed: yes Problem list reviewed and updated with the most current plan of care details and appropriate orders placed. Relevant counseling for the gestational age provided. Continue routine care and follow up unless otherwise noted in visit notes/problem list details OB Flowsheet Initial Weight: 303 lb Date -?-?-?-?-?-?-?-?-?-?-?-?- EGA Weight BP Urine Prot -?-?-?-?-?-?-?-?-?-?-?-?- Glucose FHR FuHt Pres Dilation -?-?-?-?-?-?-?-?-?-?-?-?- Effaced St Visit Note 08/05/21 -?-?-?-?-?-?-?-?-?-?-?-?- 10w 3d 303 lb (+0 oz) 129/83 -?-?-?-?-?-?-?-?-?-?-?-?- 157 -?-?-?-?-?-?-?-?-?-?-?-?- SM- CRL cons wit h LMP SM- CRL 3.4cm cons with LMP 09/07/21 -?-?-?-?-?-?-?-?-?-?-?-?- 15w 1d 294 lb 6 oz (-8 lb 10 oz) 110/70 Negative -?-?-?-?-?-?-?-?-?-?-?-?- Negative 153 -?-?-?-?-?-?-?-?-?-?-?-?- MH-No VB, LOF. N o cramping. Having nausea in car. Wade sent 10/07/21 -?-?-?-?-?-?-?-?-?-?-?-?- 19w 3d 296 lb (-7 lb) 122/80 -?-?-?-?-?-?-?-?-?-?-?-?- 145 -?-?-?-?-?-?-?-?-?-?-?-?- - no vb crampi ng nl anatomy scan 11/02/21 -?-?-?-?-?-?-?-?-?-?-?-?- 23w 1d 290 lb 2 oz (-12 lb 14 oz) 120/70 Negative -?-?-?-?-?-?-?-?-?-?-?-?- Negative 151 -?-?-?-?-?-?-?-?-?-?-?-?- -No VB, LOF. G ood FM. Denies concerns 11/30/21 -?-?-?-?-?-?-?-?-?-?-?-?- 27w 1d 289 lb 8 oz (-13 lb 8 oz) 130/82 Negative -?-?-?-?-?-?-?-?-?-?-?-?- Negative 147 -?-?-?-?-?-?-?-?-?-?-?-?- JV- 1 hr pending , no complaints. declines tdap and flu vaccine. 12/19/21 -?-?-?-?-?-?-?-?-?-?-?-?- 29w 6d 291 lb 6 oz (-11 lb 10 oz) 122/87 Negative -?-?-?-?-?-?-?-?-?-?-?-?- Negative -?-?-?-?-?-?-?-?-?-?-?-?- -No VB, LOF. G ood FM. Larc. Declines flu and tdap. 01/03/22 -?-?-?-?-?-?-?-?-?-?-?-?- 32w 0d 288 lb 8 oz (-14 lb 8 oz) 133/87 Negative -?-?-?-?-?-?-?-?-?-?-?-?- Negative 150 -?-?-?-?-?-?-?-?-?-?-?-?- NST only reactiv e 01/06/22 -?-?-?-?-?-?-?-?-?-?-?-?- 32w 3d 288 lb 4 oz (-14 lb 12 oz) 128/78 Negative -?-?-?-?-?-?-?-?-?-?-?-?- Negative 140 32 -?-?-?-?-?-?-?-?-?-?-?-?- LC- LC-no vb,lof,ctx. good fm. N ST reactive. LC-no vb,lof,ctx. good fm. N ST reactive. has growth scan this afternoon. remain on labetolol and LDA. 01/10/22 -?-?-?-?-?-?-?-?-?-?-?-?- 33w 0d 287 lb (-16 lb) 110/82 Negative -?-?-?-?-?-?-?-?-?-?-?-?- Negative 140 -?-?-?-?-?-?-?-?-?-?-?-?- MH-reactive NST. No VB, LOF. Good FM. 36 wk growth US is scheduled. 01/13/22 -?-?-?-?-?-?-?-?-?-?-?-?- 33w 3d 290 lb (-13 lb) 132/84 130/81 Negative -?-?-?-?-?-?-?-?-?-?-?-?- Negative 140 -?-?-?-?-?-?-?-?-?-?-?-?- JV- NST reactive bp's reviewed and stable 01/16/22 -?-?-?-?-?-?-?-?-?-?-?-?- 33w 6d 290 lb 2 oz (-12 lb 14 oz) 130/84 Negative -?-?-?-?-?-?-?-?-?-?-?-?- Negative 145 -?-?-?-?-?-?-?-?-?-?-?-?- 120/80s on 100mg labetalol. good fm. NST growth scan schedule. LC-blood pressure log review ed 120/80s on 100mg labetalol. good fm. NST growth scan schedule. 01/19/22 -?-?-?-?-?-?-?-?-?-?-?-?- 34w 2d 288 lb 8 oz (-14 lb 8 oz) 97/63 -?-?-?-?-?-?-?-?-?-?-?-?- 140 -?-?-?-?-?-?-?-?-?-?-?-?- JV- NST reactive . growth scan tonight per patient. 01/23/22 -?-?-?-?-?-?-?-?-?-?-?-?- 34w 6d 291 lb 4 oz (-11 lb 12 oz) 117/81 Negative -?-?-?-?-?-?-?-?-?-?-?-?- Negative 135 -?-?-?-?-?-?-?-?-?-?-?-?- MH-NST only reac tive. Refill labetalol 01/25/22 -?-?-?-?-?-?-?-?-?-?-?-?- 35w 1d 389 lb 8 oz (+86 lb 8 oz) 133/84 Negative -?-?-?-?-?-?-?-?-?-?-?-?- Negative 140 -?-?-?-?-?-?-?-?-?-?-?-?- MH-No VB, LOF. G ood Fm. Reactive NST 01/31/22 -?-?-?-?-?-?-?-?-?-?-?-?- 36w 0d 287 lb 9.6 oz (-15 lb 6.4 oz) 132/84 Negative -?-?-?-?-?-?-?-?-?-?-?-?- Negative 140 -?-?-?-?-?-?-?-?-?-?-?-?- -NST only reac tive 02/03/22 -?-?-?-?-?-?-?-?-?-?-?-?- 36w 3d 286 lb 4 oz (-16 lb 12 oz) 128/86 Negative -?-?-?-?-?-?-?-?-?-?-?-?- Negative 135 -?-?-?-?-?-?-?-?-?-?-?-?- JV- nst reactive . gbs collected. pt declines pelvic exam. no complaints today. 02/06/22 -?-?-?-?-?-?-?-?-?-?-?-?- 36w 6d 289 lb 4 oz (-13 lb 12 oz) 137/86 Negative -?-?-?-?-?-?-?-?-?-?-?-?- Negative 140 -?-?-?-?-?-?-?-?-?-?-?-?- SM- no vb lof go od fm no regular ctx. discussed IOL, patient requestiong to go as long as possible plan delivery by 38-39 weeks if controlled. 02/08/22 -?-?-?-?-?-?-?-?-?-?-?-?- 37w 1d 288 lb (-15 lb) 131/88 Negative -?-?-?-?-?-?-?-?-?-?-?-?- Negative 140 -?-?-?-?-?-?-?-?-?-?-?-?- -NST only reac tive 02/13/22 -?-?-?-?-?-?-?-?-?-?-?-?- 37w 6d 289 lb (-14 lb) 100/82 Negative -?-?-?-?-?-?-?-?-?-?-?-?- Negative 150 -?-?-?-?-?-?-?-?-?-?-?-?- SM- no vb lof go od fm nor egular ctx plan IOL by 39 per patient request if reassuring testing 02/21/22 -?-?-?-?-?-?-?-?-?-?-?-?- 39w 0d 295 lb (-8 lb) 166/80 189/93 167/80 150/72 148/70 114/57 -?-?-?-?-?-?-?-?-?-?-?-?- -?-?-?-?-?-?-?-?-?-?-?-?- NST FHR Rate Baby A Baseline: 140 Variability:: Moderate Accelerations:: 15 x 15 Decelerations:: None NST Reactive:: Yes FHR Category:: Category I Uterine Activity:: irregular ROS Constitutional Constitutional: Reports systems reviewed and no addt'l complaints, except as documented Eyes Eyes: Denies change in vision ENT HEENT: Reports systems reviewed and no addt'l complaints, except as documented; Denies headache(s) Cardiovascular Cardiovascular: Reports systems reviewed and no addt'l complaints, except as documented; Denies chest pain or dyspnea Respiratory/Chest Respiratory/Chest: Reports systems reviewed and no addt'l complaints, except as documented Gastrointestinal Gastrointestinal: Reports systems reviewed and no addt'l complaints, except as documented; Denies abdominal pain Genitourinary Genitourinary: Reports systems reviewed and no addt'l complaints, except as documented, contractions Details: present (irregular) and movement Details: present; Denies dysuria or genital lesions Musculoskeletal Musculoskeletal: Reports systems reviewed and no addt'l complaints, except as documented Neurologic Neurologic: Reports systems reviewed and no addt'l complaints, except as documented Endocrine Endocrinology: Reports systems reviewed and no addt'l complaints, except as documented Vital Signs Vital Signs Vital Signs: 02/21/22 18:30 02/21/22 18:30 02/21/22 19:01 Temperature Temperature Source Pulse Rate 71 Blood Pressure 166/80 H 189/93 H BP Systolic 166 189 BP Diastolic 80 93 02/21/22 19:01 02/21/22 19:17 02/21/22 19:17 Temperature Temperature Source Pulse Rate 71 71 Blood Pressure 167/80 H BP Systolic 167 BP Diastolic 80 02/21/22 19:30 02/21/22 19:30 02/21/22 20:26 Temperature Temperature Source Pulse Rate 67 Blood Pressure 150/72 H 148/70 H BP Systolic 150 148 BP Diastolic 72 70 02/21/22 20:26 02/22/22 00:00 02/22/22 00:00 Temperature 97.8 F Temperature Source Temporal Pulse Rate 66 Blood Pressure BP Systolic BP Diastolic 02/22/22 00:03 02/22/22 00:03 Temperature Temperature Source Pulse Rate 73 Blood Pressure 114/57 L BP Systolic 114 BP Diastolic 57 Weight Weight: 295 lb Body Mass Index (BMI) 47.6 Physical Exam Const alert, oriented x3, no apparent distress and healthy appearing HEENT normocephalic and moist oral mucous membranes Head and Scalp: atraumatic Neck full ROM, no lymphadenopathy, supple and thyroid normal General: trachea midline Lymph Lymphatic: no lymphadenopathy noted Chest inspection of chest normal Resp normal respiratory effort Cardio regular rate GI normal to inspection, nondistended, normoactive bowel sounds, soft to palpation and non-tender Inspection: gravid external exam normal Manual OB Exam: estimated gestational size appropriate, presentation cephalic, dilated, effaced and station Extremity normal to inspection General Extremity: Negative for edema Skin no rashes or lesions noted Neuro no focal motor deficits and deep tendon reflexes 2+ bilaterally Motor Exam: strength 5/5 throughout and clonus absent Psych mental status grossly normal Labs Labs Labs: Blood Type AB POSITIVE Antibody Screen NEGATIVE Hct 36.7 % (37-47) L Hgb 12.0 g/dL (12.0-15.0) Obstetrics US Syphilis Total Ab Non-reactive Rubella IgG Antibody Reactive (Nonreactive) Hep Bs Antigen Non-Reactive (Nonreactive) Chlamydia DNA (EDITH) Negative (Negative) Neisseria gonorrhoeae DNA (EDITH) Negative (Negative) HIV 1&2 Antibody Non-Reactive (Nonreactive) Glucose 1 Hr 50 gm 148 mg/dL (70-140) H Rhogam given: No Assessment & Plan (1) History of pre-eclampsia: COMMENT: baseline labs, baby ASA (2) : QUALIFIERS: Weeks of gestation: 38 weeks Qualified Code(s): Z3A.38 - 38 weeks gestation of COMMENT: GBS neg. anatomy nl, NIPT and carrier declined. 01/31 nl growth EFW 2970gms, 66%. (3) Supervision of high risk , antepartum: COMMENT: PRR ULISES 02/28/22 surprise PC Jeremi Jun (4) History of herpes genitalis: COMMENT: valtrex at 36 weeks. (5) Obesity affecting : COMMENT: 1 tm GCT, low nl. ordered 3 hr GTT, encouraged healthy weight gain, nl GTT (6) Hypertension affecting : COMMENT: baseline labs and EKG ordered. switched to labetalol. plan twice weekly nsts and weekly afis after 32, deliver bt 38-39. growth q 4 weeks, 02/07 nl TARUN, 02/14 nl tarun PLAN: initially high bp upon admission but due for scheduled labetalol- given and repeat bps mildly elevated then WNL (7) Abnormal EKG: COMMENT: nl Echo sched s/p consult Dr Cruz (8) Abnormal glucose affecting : COMMENT: nl 3 HR GTT (9) Encounter for induction of labor: COMMENT: cytotec then pitocin/fb
--- NOTE | 2022-02-22 08:01 | PN.OBGYN_ITS ---
Objective Data Objective Data Vital Signs: Vital Signs Temp Pulse BP 98.2 F 62 132/59 H 02/22/22 04:10 02/22/22 04:08 02/22/22 04:08 Weight: 295 lb Body Mass Index (BMI) 47.6 Lab / Micro Data Result Diagrams: 02/21/22 19:00 02/21/22 19:10 Labs: Laboratory Results - last 24 hr 02/21/22 19:00: WBC 11.4 H, RBC 4.14 L, Hgb 12.0, Hct 36.7 L, MCV 88.6, MCH 29.0, MCHC 32.7, RDW Std Deviation 42.9, RDW Coeff of [place]ienna 13.2, Plt Count 288, MPV 10.3, Immature Gran % (Auto) 0.300, Neut % (Auto) 62.8, Lymph % (Auto) 26.0, [place] % (Auto) 10.5 H, Eos % (Auto) 0.3, Baso % (Auto) 0.1, Absolute Neuts (auto) 7.2, Absolute Lymphs (auto) 2.97, Nucleated RBC % 0 02/21/22 19:00: Blood Type AB POSITIVE, Antibody Screen NEGATIVE 02/21/22 19:10: U Random Total Protein < 6.0, Urine Creatinine 32.10, P rotein/Creatinin Ratio TNP 02/21/22 19:10: Creatinine 0.42 L, Estim Creat Clear Calc 181.68, Est GFR (MDRD) Af Amer 222, Est GFR (MDRD) Non-Af 183, Uric Acid 3.3, AST 15, ALT 25 02/21/22 19:10: APTT 26.0 02/21/22 19:10: PT 13.1, INR 1.0 NST FHR Rate Baby A Baseline: 140 Variability:: Moderate Accelerations:: 15 x 15 Decelerations:: Variable FHR Category:: Category II Uterine Activity:: q2-3 Assessment & Plan (1) Encounter for induction of labor: COMMENT: cytotec then pitocin PLAN: 0800: 3/60/-3. s/p SROM plan to recheck cervix in 2 hours. if no change to add pitocin. currently ctx q2-3 with increased intensity (2) Hypertension affecting : COMMENT: baseline labs and EKG ordered. switched to labetalol. plan twice weekly nsts and weekly afis after 32, deliver bt 38-39. growth q 4 weeks, 02/07 nl TARUN, 02/14 nl tarun (3) Obesity affecting : COMMENT: 1 tm GCT, low nl. ordered 3 hr GTT, encouraged healthy weight gain, nl GTT PLAN: increased risk for PPH, active management of 3rd stage (4) History of herpes genitalis: COMMENT: valtrex at 36 weeks. PLAN: no gential lesions on exam. will proceed with IOL/anticipated (5) Supervision of high risk , antepartum: COMMENT: PRR ULISES 02/28/22 surprise PC Jeremi Jun (6) : QUALIFIERS: Weeks of gestation: 38 weeks Qualified Code(s): Z3A.38 - 38 weeks gestation of COMMENT: GBS neg. anatomy nl, NIPT and carrier declined. 01/31 nl growth EFW 2970gms, 66%. PLAN: Plan called to room with SROM. +meconium current tracing:cat 2 with resolution to cat 1 tracing. brief variables to 110 10-15 seconds with resolution to baseline. FHT: Moderate variability reactive no decelerations category I tracing [place]: q2-3 Contractions reviewed tracing abnormalities since last note: A/P: at 39weeks for IOL d/t chronic HTN s/p cytotec -SROM with mec- will have pedi at delivery -maternal and status reassuring -plan to recheck cervix in 2 hours, if no change will add pitocin per protocol -pain management per pt request, change OxyContin order to fentanyl if desires IV pain management, ultimately plans epidural -Dr. Dominguez updated on status and POC
[2022-02-22] MEDS: Labetalol 100 MG Tablet PO (08:13)
[2022-02-22] MEDS: fentaNYL 100 MCG/2 ML Ampul IV (08:21)
[2022-02-22] MEDS: 0.9% Saline Lock 10 ML Syringe IV (08:22)
[2022-02-22] MEDS: LACTATED RINGERS 500 ML 999 ML IV ×2 (09:19→11:00)
[2022-02-22] MEDS: fentaNYL-bupivacaine (epidural) 100 ML BAG EPIDURAL ×2 (10:32→15:20)
[2022-02-22] MEDS: Acyclovir 200 MG Capsule 400 MG PO (12:08)
[2022-02-22] MEDS: Lactated Ringers 1,000 ML 200 ML IV ×2 (12:10→17:10)
--- NOTE | 2022-02-22 16:56 | PCM.PN.OB ---
Objective Data Objective Data Vital Signs: Vital Signs Temp Pulse BP Pulse Ox 97.1 F L 65 140/67 H 100 02/22/22 16:40 02/22/22 16:39 02/22/22 16:39 02/22/22 16:40 Weight: 295 lb Body Mass Index (BMI) 47.6 Intake & Output: Intake and Output for Last 24 Hours 02/20/22 02/21/22 02/22/22 23:59 23:59 23:59 Intake Total 2000.00 / 2000.00 Output Total 1300 / 1300 Balance 700.00 / 700.00 Lab / Micro Data Result Diagrams: 02/21/22 19:00 02/21/22 19:10 Labs: Laboratory Results - last 24 hr 02/21/22 19:00: WBC 11.4 H, RBC 4.14 L, Hgb 12.0, Hct 36.7 L, MCV 88.6, MCH 29.0, MCHC 32.7, RDW Std Deviation 42.9, RDW Coeff of Sienna 13.2, Plt Count 288, MPV 10.3, Immature Gran % (Auto) 0.300, Neut % (Auto) 62.8, Lymph % (Auto) 26.0, [place] % (Auto) 10.5 H, Eos % (Auto) 0.3, Baso % (Auto) 0.1, Absolute Neuts (auto) 7.2, Absolute Lymphs (auto) 2.97, Nucleated RBC % 0 02/21/22 19:00: Blood Type AB POSITIVE, Antibody Screen NEGATIVE 02/21/22 19:10: U Random Total Protein < 6.0, Urine Creatinine 32.10, Protein/Creatinin Ratio TNP 02/21/22 19:10: Creatinine 0.42 L, Estim Creat Clear Calc 181.68, Est GFR (MDRD) Af Amer 222, Est GFR (MDRD) Non-Af 183, Uric Acid 3.3, AST 15, ALT 25 02/21/22 19:10: APTT 26.0 02/21/22 19:10: PT 13.1, INR 1.0 Assessment & Plan (1) Encounter for induction of labor: COMMENT: cytotec then pitocin (2) Hypertension affecting : COMMENT: baseline labs and EKG ordered. switched to labetalol. plan twice weekly nsts and weekly afis after 32, deliver bt 38-39. growth q 4 weeks, 02/07 nl TARUN, 02/14 nl tarun (3) Obesity affecting : COMMENT: 1 tm GCT, low nl. ordered 3 hr GTT, encouraged healthy weight gain, nl GTT (4) History of herpes genitalis: COMMENT: valtrex at 36 weeks. (5) Supervision of high risk , antepartum: COMMENT: PRR ULISES 02/28/22 surprise PC Jeremi Jun (6) : QUALIFIERS: Weeks of gestation: 38 weeks Qualified Code(s): Z3A.38 - 38 weeks gestation of COMMENT: GBS neg. anatomy nl, NIPT and carrier declined. 01/31 nl growth EFW 2970gms, 66%. PLAN: Plan 31 yo at 39+1 IOL for HTN. BP stable on PO labetolol current tracing: FHT: Moderate variability reactive no decelerations category I tracing [place]: q2-3 minutes Contractions avg 200MDU reviewed tracing abnormalities since last note: yes, occ variables, early decels. variables resolved with position changes SVE:/-1 A/P: 31yo at 39 weeks s/p cytotec SROM x9 hours, +mec. afebrile. pedi at delivery -mother and status reassuring -expectant management -will add pitocin if less than 200mdu Dr. Dominguez updated on status
[2022-02-22] MEDS: Oxytocin 15 Units/NS 250ml 15 UNITS/250 ML IV.SOLN 83 UNITS IV (18:48)
[2022-02-22] MEDS: Oxytocin 10 UNITS/ML Vial IM (18:49)
--- NOTE | 2022-02-22 18:52 | EX.PCM.OBRPT ---
Assessment & Plan (1) (spontaneous vaginal delivery): (2) History of herpes genitalis: COMMENT: valtrex at 36 weeks. (3) Hypertension affecting : COMMENT: baseline labs and EKG ordered. switched to labetalol. plan twice weekly nsts and weekly afis after 32, deliver bt 38-39. growth q 4 weeks, 02/07 nl TARUN, 02/14 nl tarun (4) Obesity affecting : COMMENT: 1 tm GCT, low nl. ordered 3 hr GTT, encouraged healthy weight gain, nl GTT Maternal Data Information ULISES Calculator Estimated Delivery Date Method Current WG Current Estimate 02/28/22 LMP (Certain) 39w 1d Other Estimates 02/26/22 Ultrasound #1 39w 3d Final ULISES: 02/28/22 Final ULISES Source: LMP Vaginal Delivery Maternal Presentation Maternal Presentation: Medically Indicated Induction Type of Induction: Cytotec Medical Reason for Induction: - (chronic HTN) Operative Information Date of Procedure: 02/22/22 Pre-Operative Diagnosis: IOL Post-Operative Diagnosis: Surgery / Procedure Performed: Spontaneous Vaginal Delivery Type of Anesthesia: Epidural Drain: Reyes to straight drain Estimated Blood Loss: 150 Time of Delivery: 18:38 Findings Description of Procedure: Patient began pushing and delivered the head in the DOANTO presentation. The head was delivered atraumatically and a loose nuchal cord ?1 was identified and easily reduced over the 's head. The anterior and posterior shoulders delivered without complication followed by the rest of the and the infant was placed on the maternal abdomen. Pedi and respiratory therapist at delivery for mod meconium. vigorous on maternal abdomen. Delayed cord clamping was employed for approximately 3 minutes. Cord was clamped and cut and gentle traction was applied to the cord and the placenta delivered spontaneously immediately following it was noted to be intact with three-vessel cord. The perineum and vagina were inspected and noted to have no laceration. EBL was 150. Patient and tolerated delivery well. Entered recovery phase in stable condition, bonding skin to skin Presentation: DONATO Amniotic Membrane Rupture Type: Spontaneous Time of Membrane Rupture: 0800 Amniotic Fluid Description: Moderate meconium Placental Delivery Description: Spontaneous Placenta Disposition: [facility] Cord Vessel Description: 3 Vessels Cord Entanglement: Around neck x 1, loose Nuchal Cord Compression: With compression Infant A Gender: Female (1 minute): 8 (5 minute): 9 Delayed Cord Clamping: Yes Post Vaginal Delivery Medications Given After Delivery: IV Pitocin and - (IM pitocin for mod PPH risk) Episiotomy Description: None Laceration: None Complication Complications: None Procedures Urinary/Genital [id number]: [id number] Vaginal Delivery mary guzman (CN delivery, toi shelton)
--- NOTE | 2022-02-22 19:03 | DCINST_ITS ---
Discharge Instructions Diet Discharge Diet: No restrictions Activity Discharge Activity: May Not Drive and May Shower May resume sexual activity in: 6 weeks Weight Bearing Status: Full weight bearing Dressing / Incision Call your doctor if your incision/area has: Sudden Increased Bleeding, Increased Pain/ Swelling and Foul Smelling Discharge Call your doctor if you observe: Fever of 101 or Higher, Numbness or Tingling, Change in Color, Inability to urinate, Inability to have a bowel movement, Using more than 1 pad per hour, Shortness of breath, Dizziness, Fainting spells, Chest pain, Calf discomfort and Uncontrolled pain Follow Up Care Please Follow Up With: Jacqui Elias CNM When: 6 weeks , please call office to make an appointment. Congratulations on the of your baby GIRL!!! Test Results: Test results from this visit will be discussed in further detail at your follow- up appointment, if applicable. Discharge Plan Admission Admit Date/Time: 02/21/22 18:00 Attending Provider: Jacqui Elias Primary Care Provider: Amadou Harvey Discharge Orders/Prescriptions Prescriptions: No Action PNV-DHA 27 mg iron-1 mg -300 mg capsule 1 tab PO DAILY aspirin [Adult Aspirin Regimen] 81 mg tablet,delayed release (DR/EC) 81 mg PO DAILY valacyclovir [Valtrex] 500 mg tablet 500 mg PO QDAY labetalol 100 mg tablet 100 mg PO BID Referrals / Follow Up: Amadou Harvey MD [Primary Care Provider] - Disposition Disposition (needs filled in before D/C Order can be placed): Home, Self Care
--- NOTE | 2022-02-22 23:46 | NURSING ---
epidural catheter removed, blue tip intact
[2022-02-23] VITALS (12 sets, daily range): BP systolic 130–147; BP diastolic 58–79; PULSE 64–86; RESP 16–20; TEMP 36.1–36.7; O2SAT 95
[2022-02-23] MEDS: Senna/Docusate Sodium 1 Tablet PO (04:05)
[2022-02-23] MEDS: Naproxen 500 MG Tablet PO (08:03)
[2022-02-23] MEDS: Labetalol 100 MG Tablet PO (08:04)
--- NOTE | 2022-02-23 08:10 | PCM.PN.OB ---
Subjective Subjective Patient doing well without complaints. Tolerating PO. Ambulating and voiding without difficulty. Feeding well. Denies chest pain, shortness of breath, calf pain/swelling, fevers, chills, lightheadedness. Objective Data Objective Data Vital Signs: Vital Signs Temp Pulse Resp BP Pulse Ox O2 Del Method 97.0 F L 86 18 138/72 H 95 Room Air 02/23/22 04:40 02/23/22 08:06 02/23/22 04:40 02/23/22 08:06 02/23/22 01:10 02/23/22 01:10 Oxygen Delivery Method Room Air Weight: 295 lb Body Mass Index (BMI) 47.6 Intake & Output: Intake and Output for Last 24 Hours 02/21/22 02/22/22 02/23/22 23:59 23:59 23:59 Intake Total 3576.67 / 3576.67 Output Total 3600 / 3600 800 / 800 Balance -23.33 / -23.33 -800 / -800 Lab / Micro Data Result Diagrams: 02/21/22 19:00 02/21/22 19:10 Physical Exam Const alert and oriented x3 HEENT normocephalic Eyes PERRL Neck full ROM Resp normal respiratory effort GI soft to palpation GI Narrative: FF below U Assessment & Plan (1) (spontaneous vaginal delivery): COMMENT: , IOL at 39 weeks chronic HTN, girl, LC (2) Essential hypertension: COMMENT: well controlled PLAN: Plan s/p PPD # 1 1. routine post delivery care 2. breast feeding- support given 3. rh positive 4. rubella immune 5. BP WNL
== END 2022-02-23 19:55 | disposition home or self-care (01) | DRG 807 ==
PROVIDERS: Admitting Provider Obstetrics & Gynecology; PCP Family Medicine; Visit Provider Registered Nurse
DX: O10.02 Pre-existing essential hypertension complicating childbirth (principal); Z37.0 Single live birth; E66.8 Other obesity; O69.2XX0 Labor and delivery complicated by other cord entanglement, with compression, not applicable or unspecified; O77.0 Labor and delivery complicated by meconium in amniotic fluid; Z79.82 Long term (current) use of aspirin; Z3A.39 39 weeks gestation of pregnancy; Z86.19 Personal history of other infectious and parasitic diseases; Z87.59 Personal history of other complications of pregnancy, childbirth and the puerperium; O99.214 Obesity complicating childbirth
CPT/HCPCS: 59025; 59050; 82565; 82570; 84156; 84450; 84460; 84550; 85025; 85610; 85730; 86850; 86900; 86901; 99218; J7120; A4216; G0378

== ENCOUNTER → 2022-07-20 | Outpatient (CLI) | payer BC, SELFPAY ==
[2022-07-20 18:31] LABS: Thyroid Stim Hormone (TSH) 1.97 uIU/mL (0.358-3.74)
== END | disposition home or self-care (01) ==
LOC: MFPLAB 16:55
PROVIDERS: PCP Family Medicine; Visit Provider Family Medicine
DX: E66.9 Obesity, unspecified (principal)
CPT/HCPCS: 36415; 84443

== ENCOUNTER → 2023-05-18 | Outpatient (CLI) | payer BC, SELFPAY ==
[2023-05-18 11:04] LABS: Absolute Lymphocyte Count 2.86 X10^3/uL (0.83-4.51); Absolute Neutrophil Count 4.9 X10^3/uL (2.0-7.7); Basophil# 0.04 X10^3/uL; Basophil% 0.5 % (0-1); Eosinophil# 0.09 X10^3/uL; Eosinophils% 1.1 % (0-5); Hematocrit 39.9 % (37-47); Hemoglobin 12.9 g/dL (12.0-15.0); Lymphocyte # 2.86 X10^3/ul (0.83-4.51); Lymphocyte % 33.5 % (19-41); Mean Corp Hgb Conc 32.3 g/dL (32-36); Mean Corpuscular Volume 86.7 fL (81-99); Mean Platelet Vol. 8.9 fl (6.2-12.0); Monocyte# 0.59 X10^3/uL; Monocyte% 6.9 % (0-10); NRBC Flagged by Analyzer 0 % (0-5); Neutrophil # 4.94 X10^3/uL (2.7-7.7); Neutrophil % 57.6 % (47-70); Platelet Count 357 K/mm3 (150-450); RBC Distribution Width CV 13.3 % (11.6-14.6); RBC Distribution Width SD 41.4 fl (35.1-43.9); White Blood Count 8.6 K/mm3 (4.4-11.0)
[2023-05-18 11:33] LABS: ALB/GLOB Ratio 1.1 RATIO (0.9-2.4); AST(SGOT) 15 U/L (15-37); Alanine Aminotransfer ALT/SGPT 22 U/L (13-56); Albumin, Serum 3.6 g/dL (3.2-5.0); Alkaline Phosphatase 35 U/L (45-117); Anion Gap 2 (5-15); BUN 5 mg/dL (7-18); BUN/Creat Ratio 10.4 RATIO (10-20); Calcium,Total 8.9 mg/dL (8.5-10.1); Chloride 109 mmol/L (98-107); Creatinine, Serum 0.48 mg/dL (0.55-1.02); EST Glomerular Filtration Rate 157 mL/min (>60); Est Glom Filt Rate - Afr Amer 190 mL/min (>60); Globulin 3.4 g/dL (2.2-4.2); Glucose 88 mg/dL (74-106); Hemoglobin A1c 5.4 % (3.8-5.6); Potassium 3.8 mmol/L (3.5-5.1); Sodium Level 137 mmol/L (136-145)
[2023-05-18 12:10] LABS: HIV - WCH Non-Reactive (Nonreactive); Hepatitis B Surface Antigen Non-Reactive (Nonreactive); Hepatitis C Antibody Non-Reactive (Nonreactive); Rubella IgG Equiv (Nonreactive); Syphilis Antibodies Non-reactive
[2023-05-18 15:16] LABS: Protein, Urine (Random) < 6.0 mg/dL (<11.9)
[2023-05-22 05:07] LABS: Chlamydia By Nucleic Acid AMP Negative (Negative); Gonococcus By Nucleic Acid AMP Negative (Negative)
[2023-05-24 11:09] LABS: HPV APTIMA, High Risk Negative (Negative)
== END | disposition home or self-care (01) ==
PROVIDERS: PCP Family Medicine; Referring Provider Registered Nurse; Visit Provider Registered Nurse
DX: O09.299 Supervision of pregnancy with other poor reproductive or obstetric history, unspecified trimester (principal); Z12.4 Encounter for screening for malignant neoplasm of cervix; Z3A.00 Weeks of gestation of pregnancy not specified
CPT/HCPCS: 36415; 80053; 82570; 83036; 84156; 85025; 86703; 86762; 86780; 86803; 86850; 86900; 86901; 87086; 87340; 87491; 87591; 87624; 88175; G0145

== ENCOUNTER → 2023-09-03 | Outpatient (CLI) | payer BC, SELFPAY ==
[2023-09-03 15:49] LABS: Absolute Lymphocyte Count 2.75 X10^3/uL (0.83-4.51); Absolute Neutrophil Count 6.9 X10^3/uL (2.0-7.7); Basophil# 0.02 X10^3/uL; Basophil% 0.2 % (0-1); Eosinophil# 0.05 X10^3/uL; Eosinophils% 0.5 % (0-5); Hematocrit 38.6 % (37-47); Hemoglobin 12.6 g/dL (12.0-15.0); Lymphocyte # 2.75 X10^3/ul (0.83-4.51); Lymphocyte % 26.5 % (19-41); Mean Corp Hgb Conc 32.6 g/dL (32-36); Mean Corpuscular Volume 88.9 fL (81-99); Mean Platelet Vol. 9.6 fl (6.2-12.0); Monocyte# 0.59 X10^3/uL; Monocyte% 5.7 % (0-10); NRBC Flagged by Analyzer 0 % (0-5); Neutrophil # 6.93 X10^3/uL (2.7-7.7); Neutrophil % 66.9 % (47-70); Platelet Count 317 K/mm3 (150-450); RBC Distribution Width CV 12.8 % (11.6-14.6); RBC Distribution Width SD 41.9 fl (35.1-43.9); Red Blood Count 4.34 M/mm3 (4.2-5.4); White Blood Count 10.4 K/mm3 (4.4-11.0)
[2023-09-03 17:04] LABS: HIV - WCH Non-Reactive (Nonreactive); Syphilis Antibodies Non-reactive
[2023-09-03 19:34] LABS: Glucose Challenge Gest 1H 50g 121 mg/dL (70-140)
== END | disposition home or self-care (01) ==
LOC: LAB 15:28
PROVIDERS: PCP Family Medicine; Referring Provider Obstetrics & Gynecology; Visit Provider Obstetrics & Gynecology
DX: O09.90 Supervision of high risk pregnancy, unspecified, unspecified trimester (principal); Z3A.00 Weeks of gestation of pregnancy not specified; Z13.1 Encounter for screening for diabetes mellitus
CPT/HCPCS: 36415; 82950; 85025; 86703; 86780

== ENCOUNTER 2023-10-30 16:25 | Outpatient (CLI) | payer BC, SELFPAY ==
--- NOTE | 2023-10-30 16:27 | US_ITS ---
STUDY: OBSTETRICAL ULTRASOUND - BIOPHYSICAL PROFILE REASON FOR EXAM: Female, 33 years old well being LMP: 03/10/2023 PRIOR ULTRASOUND: 05/18/2023 TECHNIQUE: Transabdominal TECHNICAL QUALITY: Adequate. FINDINGS: There is a single intrauterine fetus. The fetus is in a cephalic presentation. There is demonstrated cardiac activity with a heart rate of 138 bpm. There is a normal amniotic fluid volume. The largest amniotic fluid pocket measures 6.0 cm. The amniotic fluid index (TARUN) is 13.3 cm. The placenta is anterior in location and is not low lying. There are Grade 1 placental changes. Age by LMP: 33 weeks, 3 days. ULISES by LMP: 12/15/2023. BIOPHYSICAL PROFILE: Breathing Movements (FBM): 0 Gross Body Movements (GBM): 2 Tone (FT): 2 Amniotic Fluid Volume (AFV): 2 TOTAL SCORE: US/Biophysical Prof W/O Non Stres IMPRESSION: biophysical profile of 08/24. N.B. : The above Results were Read Back by Andrzej Bourgeois MD to Malka Dominguez DO, and understanding confirmed on 10/31/2023 12:31:54 (ET). Electronically Signed: Andrzej Bourgeois MD at 12:33 EDT ,
[2023-10-30 17:52] VITALS: BMI 47.7
[2023-10-30 17:59] VITALS: BP 135/78; PULSE 70
== END 2023-10-30 18:04 | disposition home or self-care (01) ==
LOC: OPUS 17:25 → WP 17:50
PROVIDERS: PCP Family Medicine; Referring Provider Obstetrics & Gynecology; Visit Provider Obstetrics & Gynecology
DX: O99.210 Obesity complicating pregnancy, unspecified trimester (principal); E66.01 Morbid (severe) obesity due to excess calories; O16.9 Unspecified maternal hypertension, unspecified trimester
CPT/HCPCS: 59025; 59050; 76819; 99221; G0378

== ENCOUNTER → 2023-11-05 | Outpatient (CLI) | payer BC, SELFPAY ==
--- NOTE | 2023-11-05 16:23 | US_ITS ---
STUDY: OBSTETRICAL ULTRASOUND - BIOPHYSICAL PROFILE REASON FOR EXAM: Female, 33 years old well being LMP: March 10, 2023. PRIOR ULTRASOUND: Comparison is made with prior study dated October 30, 2023. TECHNIQUE: Transabdominal TECHNICAL QUALITY: Adequate. FINDINGS: There is a single intrauterine fetus. The fetus is in a cephalic presentation. There is demonstrated cardiac activity with a heart rate of 150 bpm. There is a normal amniotic fluid volume. The largest amniotic fluid pocket measures 4.6 cm. The amniotic fluid index (TARUN) is 10.9 cm. The placenta is anterior in location and is not low lying. There are Grade 1 placental changes. Age by LMP: 34 weeks, 2 days. ULISES by LMP: December 15, 2023. BIOPHYSICAL PROFILE: Breathing Movements (FBM): 2 Gross Body Movements (GBM): 2 Tone (FT): 2 Amniotic Fluid Volume (AFV): 2 TOTAL SCORE: US/Biophysical Prof W/O Non Stres IMPRESSION: Normal biophysical profile of 10/24. Electronically Signed: Kevin Jade MD at 7:47 EDT ,
== END | disposition home or self-care (01) ==
LOC: OPUS 16:23
PROVIDERS: PCP Family Medicine; Referring Provider Obstetrics & Gynecology; Visit Provider Obstetrics & Gynecology
DX: O99.210 Obesity complicating pregnancy, unspecified trimester (principal); E66.01 Morbid (severe) obesity due to excess calories; O16.9 Unspecified maternal hypertension, unspecified trimester
CPT/HCPCS: 76819

== ENCOUNTER → 2023-11-12 | Outpatient (CLI) | payer BC, SELFPAY ==
--- NOTE | 2023-11-12 16:03 | US_ITS ---
STUDY: OBSTETRICAL ULTRASOUND - BIOPHYSICAL PROFILE REASON FOR EXAM: Female, 33 years old well being LMP: March 10, 2023. PRIOR ULTRASOUND: Comparison is made with prior study November 05, 2023. TECHNIQUE: Transabdominal TECHNICAL QUALITY: Adequate. FINDINGS: There is a single intrauterine fetus. The fetus is in a cephalic presentation. There is demonstrated cardiac activity with a heart rate of 153 bpm. There is a normal amniotic fluid volume. The largest amniotic fluid pocket measures 7.5 cm. The amniotic fluid index (TARUN) is 10.7 cm. The placenta is anterior in location and is not low lying. There are Grade 1 placental changes. Age by LMP: 35 weeks, 2 days. ULISES by LMP: December 15, 2023. BIOPHYSICAL PROFILE: Breathing Movements (FBM): 2 Gross Body Movements (GBM): 2 Tone (FT): 2 Amniotic Fluid Volume (AFV): 2 TOTAL SCORE: US/Biophysical Prof W/O Non Stres IMPRESSION: Normal biophysical profile of 10/24. Electronically Signed: Kevin Jade MD at 9:30 EDT ,
== END | disposition home or self-care (01) ==
LOC: OPUS 16:03
PROVIDERS: PCP Family Medicine; Referring Provider Obstetrics & Gynecology; Visit Provider Obstetrics & Gynecology
DX: O16.9 Unspecified maternal hypertension, unspecified trimester (principal); E66.01 Morbid (severe) obesity due to excess calories; O99.210 Obesity complicating pregnancy, unspecified trimester
CPT/HCPCS: 76819

== ENCOUNTER 2023-11-22 07:52 | Outpatient (CLI) | payer BC, SELFPAY ==
--- NOTE | 2023-11-22 07:53 | US_ITS ---
STUDY: OBSTETRICAL ULTRASOUND - BIOPHYSICAL PROFILE REASON FOR EXAM: Female, 33 years old well being LMP: March 10, 2023. PRIOR ULTRASOUND: Comparison is made with prior study dated November 12, 2023. TECHNIQUE: Transabdominal TECHNICAL QUALITY: Adequate. FINDINGS: There is a single intrauterine fetus. The fetus is in a cephalic presentation. There is demonstrated cardiac activity with a heart rate of 143 bpm. There is a normal amniotic fluid volume. The largest amniotic fluid pocket measures 3.5 cm. The amniotic fluid index (TARUN) is 11.5 cm. The placenta is anterior in location and is not low lying. There are Grade 1 placental changes. Age by LMP: 36 weeks, 5 days. ULISES by LMP: December 15, 2023. BIOPHYSICAL PROFILE: Breathing Movements (FBM): 2 Gross Body Movements (GBM): 2 Tone (FT): 2 Amniotic Fluid Volume (AFV): 2 TOTAL SCORE: / 8 US/Biophysical Prof W/O Non Stres IMPRESSION: Normal biophysical profile of 10/24. Electronically Signed: Kevin Jade MD at 10:43 EDT ,
== END 2023-11-22 23:59 | disposition home or self-care (01) ==
PROVIDERS: PCP Family Medicine; Referring Provider Obstetrics & Gynecology; Visit Provider Obstetrics & Gynecology
DX: O09.93 Supervision of high risk pregnancy, unspecified, third trimester (principal); O16.3 Unspecified maternal hypertension, third trimester; O99.213 Obesity complicating pregnancy, third trimester; Z3A.36 36 weeks gestation of pregnancy
CPT/HCPCS: 76819; 87081

== ENCOUNTER → 2023-11-26 | Outpatient (CLI) | payer BC, SELFPAY ==
--- NOTE | 2023-11-26 15:36 | US_ITS ---
STUDY: OBSTETRICAL ULTRASOUND - BIOPHYSICAL PROFILE REASON FOR EXAM: Female, 33 years old chronic hypertension LMP: Unknown. PRIOR ULTRASOUND: Biophysical profile dated November 22, 2023 TECHNIQUE: Transabdominal TECHNICAL QUALITY: Adequate. FINDINGS: There is a single intrauterine fetus. The fetus is in a cephalic presentation. There is demonstrated cardiac activity with a heart rate of 141 bpm. There is a normal amniotic fluid volume. The largest amniotic fluid pocket measures 8.5 cm. The amniotic fluid index (TARUN) is 14 cm. The placenta is anterior in location and is not low lying. There are Grade 1 placental changes. age by current US: 37 weeks, 2 days. ULISES by current US: December 15, 2023. BIOPHYSICAL PROFILE: Breathing Movements (FBM): 2 Gross Body Movements (GBM): 2 Tone (FT): 2 Amniotic Fluid Volume (AFV): 2 TOTAL SCORE: US/Biophysical Prof W/O Non Stres IMPRESSION: 1. Normal biophysical profile of 10/24. Electronically Signed: Davonte Mccarthy MD at 12:55 EDT ,
== END | disposition home or self-care (01) ==
LOC: US 15:33
PROVIDERS: PCP Family Medicine; Referring Provider Obstetrics & Gynecology; Visit Provider Obstetrics & Gynecology
DX: I10 Essential (primary) hypertension (principal)
CPT/HCPCS: 76819

== ENCOUNTER → 2023-12-03 | Outpatient (CLI) | payer BC, SELFPAY ==
--- NOTE | 2023-12-03 16:21 | US_ITS ---
STUDY: OBSTETRICAL ULTRASOUND - BIOPHYSICAL PROFILE REASON FOR EXAM: Female, 33 years old well being LMP: Unknown PRIOR ULTRASOUND: None. TECHNIQUE: Transabdominal TECHNICAL QUALITY: Adequate. FINDINGS: There is a single intrauterine fetus. The fetus is in a cephalic presentation. There is demonstrated cardiac activity with a heart rate of 164 bpm. There is a normal amniotic fluid volume. The largest amniotic fluid pocket measures 4.8 cm. The amniotic fluid index (TARUN) is 13.8 cm. The placenta is anterior in location and is not low lying. There are Grade 1 placental changes. Age by LMP: 38 weeks, 2 days. ULISES by LMP: December 15, 2023. BIOPHYSICAL PROFILE: Breathing Movements (FBM): 2 Gross Body Movements (GBM): 2 Tone (FT): 2 Amniotic Fluid Volume (AFV): 2 TOTAL SCORE: US/Biophysical Prof W/O Non Stres IMPRESSION: Normal biophysical profile of 10/24. Electronically Signed: Cristofer Mazariegos MD at 18:00 EDT ,
== END | disposition home or self-care (01) ==
LOC: US 16:20
PROVIDERS: PCP Family Medicine; Referring Provider Obstetrics & Gynecology; Visit Provider Obstetrics & Gynecology
DX: O09.93 Supervision of high risk pregnancy, unspecified, third trimester (principal); E66.01 Morbid (severe) obesity due to excess calories; I10 Essential (primary) hypertension
CPT/HCPCS: 76819

== ENCOUNTER 2023-12-06 07:19 | Inpatient (IN) | payer BC, SELFPAY ==
[2023-12-06] VITALS (31 sets, daily range): BP systolic 108–190; BP diastolic 56–94; PULSE 55–88; RESP 12–20; TEMP 35.6–37.1; O2SAT 96–99; BMI 48.9
[2023-12-06] MEDS: 0.9% Normal Saline Single 100 ML IV.SOLN. INTRA-UTER (07:47)
--- NOTE | 2023-12-06 08:04 | HP.PCM.OB_ITS ---
HPI - General General Date of Admission: 12/06/23 HPI Narrative SENDY MEDRANO, is a 33 y/o @ 38 weeks 5 days who presents to L&D for induction of labor due to chronic hypertension on labetalol. The recommendation was to induce at 38 weeks, but patient wanted to wait a few days. She is requesting the use of cytotec exclusively. We discussed the risk of not using pitocin, the benefits and risks of cytotec, and the risks include uterine tachysystole and distress with high doses of cytotec. She states that it worked for her last and she wishes to avoid pitocin if possible. The patient is morbidly obese, has a history of genital herpes, and a history of pre-eclampsia in her first . She took her last dose of labetalol this am and has been on suppressive therapy for herpes. Maternal Data Information ULISES Calculator Estimated Delivery Date Method Current WG Current Estimate 12/15/23 LMP (Certain) 38w 5d PFSH PFSH Medical History Normal course (spontaneous vaginal delivery) Essential hypertension Hypertension affecting History of pre-eclampsia Obesity Migraines Home Medications ?Medication ?Instructions ?Recorded ?Last Taken ?Type multivitamin no.47-iron fum 27 1 tab PO DAILY 09/01/19 02/21/22 History mg-folate no.1 1 mg-dha 300 mg 0630 capsule (PNV-DHA) valacyclovir 500 mg tablet See Rx Instructions .Route 03/02/22 Unknown Rx .COMPLEX #30 TABLETS ondansetron 4 mg disintegrating 4 mg PO Q6H PRN nausea and 06/15/23 Unknown Rx tablet vomiting #30 tabs labetalol 100 mg tablet 100 mg PO BID gestational htn #60 10/15/23 Unknown Rx tabs Allergy/AdvReac Type Severity Reaction Status Date / Time No Known Allergies Allergy Verified 12/05/23 15:56 Family History Mother Hypertension Grandfather Cancer Aunt Cancer Grandmother CVA (cerebral vascular accident) Surgical History [place] teeth extracted Hx of adenoidectomy History of tonsillectomy Social History adopted: No household members: spouse and children number of children: 2 current occupational status: employed current occupation: [employer] current occupational exposures/hazards: No pets and animals: Yes pets and animals: dog(s) history of recent travel: Yes ([place]) out of state: Yes out of country: No sexually active: Yes Smoking Status: Never smoker alcohol intake: current alcohol intake frequency: holidays/special occasions only details: not while substance use type: does not use well-balanced diet: about half the time caffeine: No eating out: 1-3 times/week during the past year weight has: increased > 10 lbs what type of physical activity do you participate in: none liborio/lutheran: Pentecostal seatbelt use: always do you feel safe at home: Yes additional social history: 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 Date Name GA/Weeks Outcome Route Bth Weight Gen Labor Lgth Anesthesia Del Locatn Provider FOB 04/02/20 Jeremi 41 live - full term Male epidur al [facility] ISAEL 02/22/22 Adalynne 39 live - full term 8#5oz Female ep idural [facility] Jacqui Elias Delivery Date: 04/02/20 Last Updated by: Lorraine Ruiz pre-e; IoL post dates Delivery Date: 02/22/22 Last Updated by: Geraldine Galvez see problem list for complications. chronic HTN, IOL. Visit Details Expected Delivery Route/Plan Labor Preferences- CB/BF classes: [] labor support person: [] labor intervention preferences: [] pain management options preferred: [] cut cord/dad catch: [] : [] PP control planned: [] discussed possible routes of delivery and associated risks: [] special requests: [] Plans Covid status: [] Flu vaccine: [] Tdap vaccine: [] Rhogam: na LARC form signed: Larc Problem list reviewed and updated with the most current plan of care details and appropriate orders placed. Relevant counseling for the gestational age provided. Continue routine care and follow up unless otherwise noted in visit notes/problem list details OB Flowsheet Initial Weight: 298 lb Date -?-?-?-?-?-?-?-?-?-?-?-?- EGA Weight BP Urine Prot -?-?-?-?-?-?-?-?-?-?-?-?- Glucose FHR FuHt Pres Dilation -?-?-?-?-?-?-?-?-?-?-?-?- Effaced St Visit Note 05/18/23 -?-?-?-?-?-?-?-?-?-?-?-?- 9w 6d 298 lb 6 oz (+6 oz) 124/84 -?-?-?-?-?-?-?-?-?-?-?-?- 171 -?-?-?-?-?-?-?-?-?-?-?-?- LC- CRL con with LMP. declines nipt. PEC baseline and hgba1c added to NOB panel. 06/15/23 -?-?-?-?-?-?-?-?-?-?-?-?- 13w 6d 292 lb (-6 lb) 139/85 -?-?-?-?-?-?-?-?-?-?-?-?- 168 -?-?-?-?-?-?-?-?-?-?-?-?- KW- no vb/crampi ng. declines AFP. zofran for occasional n/v. will start taking bp once daily to monitor. was on oral med last 07/12/23 -?-?-?-?-?-?-?-?-?-?-?-?- 17w 5d 296 lb 4 oz (-1 lb 12 oz) 133/85 Negative -?-?-?-?-?-?-?-?-?-?-?-?- Negative 150 -?-?-?-?-?-?-?-?-?-?-?-?- kw- no vb/crampi ng. flutters. MFM US scheduled. 08/08/23 -?-?-?-?-?-?-?-?-?-?-?-?- 21w 4d 296 lb 4 oz (-1 lb 12 oz) 133/84 Negative -?-?-?-?-?-?-?-?-?-?-?-?- Negative 156 -?-?-?-?-?-?-?-?-?-?-?-?- JV- no cramping or spotting. anatomy scan reviewed. RTO in 4 weeks . 09/03/23 -?-?-?-?-?-?-?-?-?-?-?-?- 25w 2d 297 lb (-16 oz) 149/91 Negative -?-?-?-?-?-?-?-?-?-?-?-?- Negative 155 -?-?-?-?-?-?-?-?-?-?-?-?- KW- no vb/crampi helder. samy fm. labs pending 10/01/23 -?-?-?-?-?-?-?-?-?-?-?-?- 29w 2d 297 lb 4 oz (-12 oz) 139/89 Negative -?-?-?-?-?-?-?-?-?-?-?-?- Negative 142 -?-?-?-?-?-?-?-?-?-?-?-?- MH-No Vb, LOF. G ood FM. Denies concerns. 10/15/23 -?-?-?-?-?-?-?-?-?-?-?-?- 31w 2d 296 lb 4 oz (-1 lb 12 oz) 138/89 Negative -?-?-?-?-?-?-?-?-?-?-?-?- Negative 156 -?-?-?-?-?-?-?-?-?-?-?-?- JV- pressures st ill borderline high. starting labetalol 100 bid. pt has growth and bpp with mfm next week. will set up weekly bpp's. 10/29/23 -?-?-?-?-?-?-?-?-?-?-?-?- 33w 2d 298 lb (+0 oz) 130/86 -?-?-?-?-?-?-?-?-?-?-?-?- 155 -?-?-?-?-?-?-?-?-?-?-?-?- JV- pt has bpp's scheduled weekly. She is not happy with recommendations for 38 week delivery. has not seen SM this . plan for her to see her next visit. BPP tomorrow. has mfm growth scan coming up. she can talk to them about delivery timing. 11/12/23 -?-?-?-?-?-?-?-?-?-?-?-?- 35w 2d 299 lb 8 oz (+1 lb 8 oz) 131/83 Negative -?-?-?-?-?-?-?-?-?-?-?-?- 250 g/dL 150 37 -?-?-?-?-?-?-?-?-?-?-?-?- SM- no vb lof go od fm no regular ctx discussed IOL between 38 and 39 weeks. recommend bpp that week, home bp checks. 11/22/23 -?-?-?-?-?-?-?-?-?-?-?-?- 36w 5d 299 lb 8 oz (+1 lb 8 oz) 135/85 Negative -?-?-?-?-?-?-?-?-?-?-?-?- Negative 130 39 -?-?-?-?-?-?-?-?-?-?-?-?- JV- nst reactive . bp stable. growth stable. IOL set up for 38 weeks 5 days (dec 05) per patient request. declined exam today. will need next week to calculate shearer score. GBS collected today. 11/26/23 -?-?-?-?-?-?-?-?-?-?-?-?- 37w 2d 298 lb (+0 oz) 138/87 -?-?-?-?-?-?-?-?-?-?-?-?- -?-?-?-?-?-?-?-?-?-?-?-?- SM- patient had BPP scheduled and left to be on time for appointment, bp controlled ROS Constitutional Constitutional: Denies change in weight, fatigue, fever(s), headache(s), poor appetite or weakness Eyes Eyes: Denies blurry vision, change in vision, seeing flashes or spots in vision ENT HEENT: Denies dizziness, headache(s), loss taste/smell or sore throat Cardiovascular Cardiovascular: Denies chest pain, dizziness, dyspnea, irregular heart rhythm, leg edema, palpitations, rapid heart rate or vomiting Respiratory/Chest Respiratory/Chest: Denies chest tightness, cough, dyspnea or breast pain Gastrointestinal Gastrointestinal: Denies abdominal pain, anorexia, constipation, cramping, diarrhea, hemorrhoids, vomiting or weight changes Genitourinary Genitourinary: Denies dysuria, flank pain, genital lesions, genital pain, urinary frequency or urinary urgency Musculoskeletal Musculoskeletal: Denies back pain, difficulty walking, joint pain, limited range of motion, muscle cramps or numbness Integumentary Integumentary: Denies lesions or unusual bruising Neurologic Neurologic: Denies abnormal movements, abnormal speech, dizziness, numbness, seizure-like activity or syncope Psychiatric Psychiatric: Denies anxiety, behavioral changes, change in appetite, change in libido, cognitive impairment, confusion, depression, difficulty concentrating, hallucinations or suicidal thoughts Endocrine Endocrinology: Denies excessive sweating, polydipsia or polyuria Hematologic/Lymphatic Hematologic/Lymphatic: Denies easy bleeding, easy bruising or lymphadenopathy Allergic/Immunologic Allergic/Immunologic: Denies itchy eyes, lip swelling, seasonal rhinorrhea, rhinitis, throat swelling, tongue swelling, eczemia, wheezing or asthma Vital Signs Vital Signs Vital Signs: Weight Weight: 303 lb Body Mass Index (BMI) 48.9 Physical Exam Const alert, oriented x3, no apparent distress and healthy appearing General Appearance: cooperative; Negative for anxious HEENT normocephalic Face and Sinus: normal facial exam Eyes EOMs intact bilaterally and no scleral icterus General Eye: normal appearance of both eyes Neck full ROM and supple Lymph Lymphatic: no lymphadenopathy noted Chest Chest: abnormal inspection of the chest Resp normal respiratory effort Effort and Inspection: able to speak in complete sentences Cardio regular rate GI soft to palpation and non-tender Inspection: gravid Palpation: soft; Negative for tender external exam normal Narrative: no signs of herpes lesions OB / External & Speculum: other a arango catheter was inserted into the cervix. Current dilation is 1.5/80/-3 The balloon was inflated with 30cc ; Negative for herpetic lesions Amniotic Fluid: ROM+plus Back/Spine no CVA tenderness Extremity normal to inspection, full ROM and no clubbing, cyanosis or edema General Extremity: Negative for calf tenderness or edema Skin Lesions: no lesions Rashes: no rashes Psych mental status grossly normal Labs Labs Labs: Blood Type AB POSITIVE Antibody Screen NEGATIVE Hct 38.6 % (37-47) Hgb 12.6 g/dL (12.0-15.0) Obstetrics Ultrasound Syphilis Total Ab Non-reactive Rubella IgG Antibody Equiv (Nonreactive) Hep Bs Antigen Non-Reactive (Nonreactive) Hepatitis C Antibody Non-Reactive (Nonreactive) Chlamydia DNA (EDITH) Negative (Negative) N.gonorrhoeae DNA (EDIHT) Negative (Negative) HIV 1&2 Antibody Non-Reactive (Nonreactive) Glucose 1 Hr 50 gm 121 mg/dL (70-140) Gest Glucose Tolerance MG/DL Rhogam given: No Assessment & Plan (1) Rubella non-immune status, antepartum: COMMENT: equiv. recommend MMR vaccine PP (2) Obesity: QUALIFIERS: Obesity type: due to excess calories Obesity classification: adult class 3 (BMI >= 40) Serious obesity comorbidity presence: without serious comorbidity Body mass index: BMI 45.0-49.9 Qualified Code(s): E66.01 - Morbid (severe) obesity due to excess calories; Z68.42 - Body mass index [BMI] 45.0-49.9, adult COMMENT: weekly NSTs at 34 weeks- growth US with MFM scheduled for 32 & 36 wk. BMI 48,hbga1c with nob (3) Hx of pre-eclampsia in prior , currently : COMMENT: labs nl at NOB (4) Supervision of high-risk : QUALIFIERS: Trimester: third trimester Qualified Code(s): O09.93 - Supervision of high risk , unspecified, third trimester COMMENT: PRR, , ULISES 12/15/23, IRAJ Blood, Vandana Lopez (5) : QUALIFIERS: Weeks of gestation: 38 weeks Qualified Code(s): Z3A.38 - 38 weeks gestation of COMMENT: nl anatomy, discussed genetic & carrier testing, declines. (6) Essential hypertension: COMMENT: on labetalol, will f/u with PCP growth us at 32 and 36 weeks plan weekly bpp's (7) History of herpes genitalis: COMMENT: valtrex at 36 weeks PLAN: Plan Patient presents IOL, plan management for with arango balloon and cytotec 50 mcg orally (per patient request) Pain management: plans epidural. GBS negative. Management of any complications: see above, one being difficulty in compliance with recommended treatment plans. I have reviewed the [facility] and made any clinically relevant updates.
[2023-12-06] MEDS: Lactated Ringers 1,000 ML 50 ML IV (08:20)
[2023-12-06] MEDS: miSOPROStol 50 MCG TABLET PO (08:45)
[2023-12-06 08:46] LABS: Absolute Neutrophil Count 7.5 X10^3/uL (2.0-7.7); Basophil# 0.02 X10^3/uL; Basophil% 0.2 % (0-1); Eosinophil# 0.04 X10^3/uL; Eosinophils% 0.4 % (0-5); Hematocrit 36.8 % (37-47); Hemoglobin 12.4 g/dL (12.0-15.0); Lymphocyte % 21.9 % (19-41); Mean Corp Hgb Conc 33.7 g/dL (32-36); Mean Corpuscular Hgb 29.4 pg (27.0-32.0); Mean Corpuscular Volume 87.2 fL (81-99); Mean Platelet Vol. 10.3 fl (6.2-12.0); Monocyte# 0.61 X10^3/uL; Monocyte% 5.8 % (0-10); NRBC Flagged by Analyzer 0 % (0-5); Neutrophil # 7.48 X10^3/uL (2.7-7.7); Neutrophil % 71.3 % (47-70); Platelet Count 259 K/mm3 (150-450); RBC Distribution Width CV 13.2 % (11.6-14.6); RBC Distribution Width SD 41.7 fl (35.1-43.9); Red Blood Count 4.22 M/mm3 (4.2-5.4); White Blood Count 10.5 K/mm3 (4.4-11.0)
[2023-12-06 09:26] LABS: Syphilis Antibodies Non-reactive
[2023-12-06] MEDS: Cefazolin 3 GM in 0.9% Normal Saline (100mL Bag) 100 ML IV (12:40)
[2023-12-06] MEDS: Azithromycin 500 MG in Dextrose 5%-Water (250mL Bag) 250 ML 250 MG IV (12:50)
--- NOTE | 2023-12-06 13:47 | OP.PCM_ITS ---
Assessment & Plan (1) Labor presentation, breech: (2) Rubella non-immune status, antepartum: COMMENT: equiv. recommend MMR vaccine PP (3) Obesity: QUALIFIERS: Obesity type: due to excess calories Obesity classification: adult class 3 (BMI >= 40) Serious obesity comorbidity presence: without serious comorbidity Body mass index: BMI 45.0-49.9 Qualified Code(s): E66.01 - Morbid (severe) obesity due to excess calories; Z68.42 - Body mass index [BMI] 45.0-49.9, adult COMMENT: weekly NSTs at 34 weeks- growth US with MFM scheduled for 32 & 36 wk. BMI 48,hbga1c with nob (4) Hx of pre-eclampsia in prior , currently : COMMENT: labs nl at NOB (5) Supervision of high-risk : QUALIFIERS: Trimester: third trimester Qualified Code(s): O09.93 - Supervision of high risk , unspecified, third trimester COMMENT: PRR, , ULISES 12/15/23, Vandana Burt Lopez (6) : QUALIFIERS: Weeks of gestation: 38 weeks Qualified Code(s): Z3A.38 - 38 weeks gestation of COMMENT: nl anatomy, discussed genetic & carrier testing, declines. (7) Essential hypertension: COMMENT: on labetalol, will f/u with PCP growth us at 32 and 36 weeks plan weekly bpp's (8) History of herpes genitalis: COMMENT: valtrex at 36 weeks Maternal Data Information ULISES Calculator Estimated Delivery Date Method Current WG Current Estimate 12/15/23 LMP (Certain) 38w 5d Final ULISES: 12/15/23 Final ULISES Source: LMP Gestational age: 38 weeks 5 days Details Operative Information Date of Procedure: 12/06/23 Pre-Operative Diagnosis: 33 y/o @ 38 weeks 5 days, chronic hypertension on medication, breech presentation in labor Post-Operative Diagnosis: 33 y/o @ 38 weeks 5 days, chronic hypertension on medication, breech presentation in labor Classification: MARINO Procedure Type: low transverse experimental welder #1: Vy Rojas Type of Anesthesia: Spinal Antibiotic Given: Ancef 3 grams IV x1 and Zithromax 500 mg/5 mL X1 Drain: Arango to straight drain Estimated Blood Loss: 500cc Fluids Replaced: 1900cc Procedure Start Time: 12:58 Procedure Stop Time: 13:56 Time of Delivery: 13:01 Findings Description of Procedure: The patient is a 33 y/o @ 38 weeks 5 days who initially presented for an induction of labor. During her initial vaginal exam and arango bulb insertion I was certain the head was vertex presentation, as was also confirmed on ultrasound 3 days ago. After the bulb came out, membranes were ruptured and the presenting part was an ankle. Ultraound at bedside confirmed the head in the right upper quadrant. At that time she was 4-5 cm dilated with a large amount of clear fluid return. The decision was to proceed with an urgent. . Spinal anesthesia was placed without difficulty. Arango catheter was placed. The patient was placed in the dorsal supine position with leftward tilt. Patient was prepped and draped in the normal sterile fashion. Pfannenstiel skin incision was made with the scalpel and carried through to the underlying layer of fascia with the scalpel. Fascia was nicked in the midline and the incision extended laterally. The rectus bellies were dissected off superiorly and inferiorly with out complication both sharply and bluntly. The peritoneum was entered digitally. The incision was stretched and a low transverse uterine incision was made with the scalpel. The 's feet and legs, followed by buttocks, body and then the anterior and posterior shoulders. The head was delivered atraumatically last. The cord was clamped and cut and the was handed off to awaiting nurse. The placenta was delivered spontaneously immediately following and was noted to be intact and have a three-vessel cord. The uterus was exteriorized cleared of all clots and debris, and the incision w as closed in a double layer closure using #1 Vicryl and and #1 Monocryl. The ovaries and fallopian tubes were noted to be within normal limits. The uterus was returned to the maternal abdomen and gutters were cleared of all clots and debris. The peritoneum was closed with 3-0 Monocryl in a running fashion. Gloves were changed prior to fascial closure. Fascia was closed with 0 PDS in a running fashion. Subcutaneous tissue was copiously irrigated and the skin was closed with 3-0 Monocryl in a subcuticular fashion. Mepilex dressing was applied without complication. Patient was taken to recovery in stable condition. It was discussed with the patient that based on the clinical information obtained during this encounter, combined with her history, at this time I would recommend or repeat cesaren for future deliveries if further pregnancies are desired. During the procedure, my delinquent tax collection assistant, Vy Rojas CNP assisted in retraction and suture cutting. Presentation: Positive for Footling Breech Amniotic Membrane Rupture Type: Artificial Amniotic Fluid Description: Clear Placental Delivery Description: Manual Removal Placenta Disposition: [facility] Cord Vessel Description: 3 Vessels Cord Entanglement: None A Gender: Male (1 minute): 9 (5 minute): 9 Delayed Cord Clamping: Yes Complications Risks of Surgery Discussed w/Patient: Bleeding, Anesthesia Risks, Need for Future C-Sections and Injury to surrounding structure(s) including bowel and bladder Complications: none Multi Select Codes Urinary/Genital Urinary/Genital CPT Codes: 89900 Delivery [facility]
--- NOTE | 2023-12-06 13:56 | DCINST_ITS ---
Discharge Instructions Diet Discharge Diet: No restrictions Activity Discharge Activity: May Not Drive (for 2 weeks or while taking narcotic pain medications.), May Shower and May Take a Tub Bath (in 7 days.) May resume sexual activity in: 4-6 weeks Weight Bearing Status: Full weight bearing Lifting Restrictions: 20 pounds Dressing / Incision Call your doctor if your incision/area has: Continuous Slow Oozing, Sudden Increased Bleeding, Increased Pain/ Swelling, Increased Redness and Foul Smelling Discharge Call your doctor if you observe: Fever of 101 or Higher and Using more than 1 pad per hour Suture Line Care: Avoid Pulling/Pushing and Avoid Pinching/Bending Cleanse incision/area with: Soap & Water and Keep Dressing Clean & Dry Follow Up Care Please Follow Up With: Malka Dominguez DO When: Call [phone] to make an appointment for an incision check in 1-2 weeks. Test Results: Test results from this visit will be discussed in further detail at your follow- up appointment, if applicable. Discharge Plan Admission Admit Date/Time: 12/06/23 07:19 Primary Reason for Your Visit: section Attending Provider: Malka Dominguez Primary Care Provider: Amadou Harvey Discharge Orders/Prescriptions Prescriptions: New ibuprofen 800 mg tablet 800 mg PO Q8H PRN (Reason: pain) Qty: 30 0RF oxycodone-acetaminophen [Percocet] 5-325 mg tablet 1 tab PO Q4H PRN (Reason: pain) 7 Days Qty: 20 0RF Rx Instructions: 1-2 tabs q 4 hrs as needed for pain Continued PNV-DHA 27 mg iron-1 mg -300 mg capsule 1 tab PO DAILY ondansetron 4 mg tablet,disintegrating 4 mg PO Q6H PRN (Reason: nausea and vomiting) Qty: 30 2RF labetalol 100 mg tablet 100 mg PO BID Qty: 60 0RF valacyclovir 500 mg tablet See Rx Instructions .ROUTE .COMPLEX Qty: 30 12RF Dose Instruction: TAKE 1 TABLET BY MOUTH EVERY DAY Rx Instructions: TAKE 1 TABLET BY MOUTH EVERY DAY Referrals / Follow Up: Amadou Harvey MD [Primary Care Provider] - Disposition Disposition (needs filled in before D/C Order can be placed): Home, Self Care
[2023-12-06] MEDS: Oxytocin 15 Units/NS 250ml 15 UNITS/250 ML IV.SOLN 83 UNITS IV (14:05)
[2023-12-06] MEDS: Ketorolac 30 MG/ML Syringe IV ×2 (14:24→20:35)
--- NOTE | 2023-12-06 15:33 | PCM.OP.BLANK ---
Problems Associated Problem List Diagnoses (1) Status post section: (2) Labor presentation, breech: (3) Rubella non-immune status, antepartum: (4) Obesity: (5) Hx of pre-eclampsia in prior , currently : (6) Supervision of high-risk : (7) : (8) Essential hypertension: (9) History of herpes genitalis: Operative Report Date of Procedure: 12/06/23 I was present and assisted Dr. Dominguez from the start of the procedure to the end. I performed retraction, suture cutting, suction, and fundal pressure assistance during the procedure. ? See Dr. Dominguez's operative note for full details of the procedure. Multi Select Codes Urinary/Genital Urinary/Genital CPT Codes: 72187 Delivery global pkg (CNM director of first impressions )
[2023-12-06] MEDS: Acetaminophen 500 MG Tablet 1000 MG PO ×2 (16:41→22:22)
[2023-12-06] MEDS: Lactated Ringers 1,000 ML 100 ML IV (17:30)
[2023-12-06] MEDS: oxyCODONE 5 MG Tablet PO ×2 (18:30→22:22)
[2023-12-06] MEDS: Labetalol 100 MG Tablet PO ×2 (18:30→19:34)
[2023-12-06] MEDS: NIFEdipine 10 MG Capsule PO (20:40)
[2023-12-07] VITALS (11 sets, daily range): BP systolic 115–145; BP diastolic 65–78; PULSE 56–74; RESP 16–18; TEMP 35.4–37.1; O2SAT 96–98
[2023-12-07] MEDS: 0.9% Saline Lock 10 ML Syringe IV ×2 (03:10→09:06)
[2023-12-07] MEDS: Enoxaparin 40 MG/0.4 ML Syringe SC ×2 (03:10→16:00)
[2023-12-07] MEDS: Ketorolac 30 MG/ML Syringe IV ×2 (03:10→09:06)
[2023-12-07] MEDS: oxyCODONE 5 MG Tablet PO ×4 (03:11→21:36)
[2023-12-07] MEDS: Labetalol 200 MG Tablet PO ×3 (04:06→20:45)
[2023-12-07] MEDS: Acetaminophen 500 MG Tablet 1000 MG PO ×4 (04:06→23:06)
[2023-12-07 06:22] LABS: Hematocrit 33.5 % (37-47); Hemoglobin 10.8 g/dL (12.0-15.0); Mean Corp Hgb Conc 32.2 g/dL (32-36); Mean Corpuscular Hgb 28.6 pg (27.0-32.0); Mean Corpuscular Volume 88.6 fL (81-99); Mean Platelet Vol. 10.3 fl (6.2-12.0); Platelet Count 232 K/mm3 (150-450); RBC Distribution Width CV 13.5 % (11.6-14.6); RBC Distribution Width SD 43.9 fl (35.1-43.9); Red Blood Count 3.78 M/mm3 (4.2-5.4)
--- NOTE | 2023-12-07 07:35 | PCM.PN.OB ---
Subjective Subjective Patient is laying in bed comfortably without complaints. She states that she slept on an off during the night. Lochia is mild and pain is minimal. Objective Data Objective Data Vital Signs: Vital Signs Temp Pulse Resp BP Pulse Ox O2 Del Method 97.2 F L 65 17 145/70 H 96 Room Air 12/07/23 04:04 12/07/23 04:04 12/07/23 04:00 12/07/23 04:04 12/07/23 04:04 12/07/23 04:00 Oxygen Delivery Method Room Air Weight: 303 lb Body Mass Index (BMI) 48.9 Intake & Output: Intake and Output for Last 24 Hours 12/05/23 12/06/23 12/07/23 23:59 23:59 23:59 Intake Total 620 / 620 2000 / 1999 Output Total 3100 / 3100 700 / 700 Balance -2480 / -2480 1300 / 1300 Lab / Micro Data 12/07/23 06:07 Labs: Laboratory Results - last 24 hr 12/06/23 08:20: WBC 10.5, RBC 4.22, Hgb 12.4, Hct 36.8 L, MCV 87.2, MCH 29.4, MCHC 33.7, RDW Std Deviation 41.7, RDW Coeff of [place] 13.2, Plt Count 259, MPV 10.3, Immature Gran % (Auto) 0.400, Neut % (Auto) 71.3 H, Lymph % (Auto) 21.9, [place] % (Auto) 5.8, Eos % (Auto) 0.4, Baso % (Auto) 0.2, Absolute Neuts (auto) 7.5, Absolute Lymphs (auto) 2.30, Nucleated RBC % 0, Syphilis Total Ab Non-reactive, Blood Type AB POSITIVE, Antibody Screen NEGATIVE 12/07/23 06:07: WBC 12.0 H, RBC 3.78 L, Hgb 10.8 L, Hct 33.5 L, MCV 88.6, MCH 28.6, MCHC 32.2, RDW Std Deviation 43.9, RDW Coeff of [place] 13.5, Plt Count 232, MPV 10.3 ROS Constitutional Constitutional: Reports systems reviewed and no addt'l complaints, except as documented Cardiovascular Cardiovascular: Denies chest pain, dizziness, dyspnea or irregular heart rhythm Respiratory/Chest Respiratory/Chest: Denies cough, pain on inspiration or shortness of breath at rest Gastrointestinal Gastrointestinal: Denies abdominal pain, nausea or vomiting Genitourinary Genitourinary: Denies burning urination Musculoskeletal Musculoskeletal: Denies muscle cramps, muscle spasms or muscle weakness Neurologic Neurologic: Denies confusion, dizziness, headache(s) or lack of coordination Psychiatric Psychiatric: Denies anxiety, behavioral changes or depression Physical Exam HEENT normocephalic Resp normal respiratory effort and normal air movement GI soft to palpation, non-tender and non-distended Rectal Exam: other Other Details: Incision is clean, dry, and intact no CVA tenderness Extremity normal to inspection General Extremity: edema bilateral (trace ) Assessment & Plan (1) Status post section: COMMENT: breech in labor - JV, KW assist (2) Labor presentation, breech: (3) Rubella non-immune status, antepartum: COMMENT: equiv. recommend MMR vaccine PP (4) Obesity: QUALIFIERS: Obesity type: due to excess calories Obesity classification: adult class 3 (BMI >= 40) Serious obesity comorbidity presence: without serious comorbidity Body mass index: BMI 45.0-49.9 Qualified Code(s): E66.01 - Morbid (severe) obesity due to excess calories; Z68.42 - Body mass index [BMI] 45.0-49.9, adult COMMENT: weekly NSTs at 34 weeks- growth US with MFM scheduled for 32 & 36 wk. BMI 48,hbga1c with nob (5) Hx of pre-eclampsia in prior , currently : COMMENT: labs nl at NOB (6) Essential hypertension: COMMENT: on labetalol, will f/u with PCP growth us at 32 and 36 weeks plan weekly bpp's (7) History of herpes genitalis: COMMENT: valtrex at 36 weeks PLAN: Plan s/p LTCS PPD # 1 1. routine post care 2. breast feeding- support given 3. rh positive 4. rubella non- immune: vaccinate if accepts 5. continue 200 tid labetalol 6. plan for dc to home tomorrow as bp and pain not well controlled yet.
[2023-12-07] MEDS: Senna/Docusate Sodium 1 Tablet PO (09:05)
[2023-12-07] MEDS: SimETHICONE 80 MG Chewable Tablet PO (14:21)
[2023-12-07] MEDS: Naproxen 500 MG Tablet PO ×2 (15:51→23:10)
--- NOTE | 2023-12-07 21:21 | NURSING ---
Pt declines MMR vaccine for being Rubella non-immune
[2023-12-08] VITALS (7 sets, daily range): BP systolic 123–171; BP diastolic 58–73; PULSE 70–80; RESP 16–18; TEMP 36.8–37.1; O2SAT 98
[2023-12-08] MEDS: Enoxaparin 40 MG/0.4 ML Syringe SC (02:29)
[2023-12-08] MEDS: Labetalol 200 MG Tablet PO ×2 (04:19→11:43)
[2023-12-08] MEDS: Acetaminophen 500 MG Tablet 1000 MG PO ×2 (04:19→11:17)
--- NOTE | 2023-12-08 05:57 | PCM.PN.OB ---
Subjective Subjective Patient doing well without complaints. Tolerating PO. Ambulating and voiding without difficulty. Feeding well. Denies chest pain, shortness of breath, calf pain/swelling, fevers, chills, lightheadedness. Objective Data Objective Data Vital Signs: Vital Signs Temp Pulse Resp BP Pulse Ox O2 Del Method 98.4 F 70 18 141/70 H 98 Room Air 12/07/23 20:40 12/08/23 02:34 12/08/23 02:19 12/08/23 02:34 12/07/23 15:53 12/07/23 20:40 Oxygen Delivery Method Room Air Weight: 303 lb Body Mass Index (BMI) 48.9 Intake & Output: Intake and Output for Last 24 Hours 12/06/23 12/07/23 12/08/23 23:59 23:59 23:59 Intake Total 620 / 620 1999 / 1999 Output Total 3100 / 3100 700 / 700 Balance -2480 / -2480 1300 / 1300 Lab / Micro Data Attestation: I reviewed the patient's lab results. 12/07/23 06:07 Labs: Laboratory Results - last 24 hr 12/07/23 06:07: WBC 12.0 H, RBC 3.78 L, Hgb 10.8 L, Hct 33.5 L, MCV 88.6, MCH 28.6, MCHC 32.2, RDW Std Deviation 43.9, RDW Coeff of [place] 13.5, Plt Count 232, MPV 10.3 ROS Constitutional Constitutional: Reports systems reviewed and no addt'l complaints, except as documented; Denies anorexia or headache(s) Cardiovascular Cardiovascular: Reports systems reviewed and no addt'l complaints, except as documented; Denies dizziness, dyspnea, nausea or tachypnea Respiratory/Chest Respiratory/Chest: Reports systems reviewed and no addt'l complaints, except as documented; Denies cough, dyspnea, shortness of breath at rest or tachypnea Gastrointestinal Gastrointestinal: Reports systems reviewed and no addt'l complaints, except as documented; Denies abdominal pain, constipation or nausea Genitourinary Genitourinary: Reports systems reviewed and no addt'l complaints, except as documented; Denies burning urination, difficulty urinating, dysuria, urinary frequency or urinary incontinence Musculoskeletal Musculoskeletal: Reports systems reviewed and no addt'l complaints, except as documented Integumentary Integumentary: Reports systems reviewed and no addt'l complaints, except as documented Neurologic Neurologic: Reports systems reviewed and no addt'l complaints, except as documented; Denies abnormal speech, dizziness or headache(s) Psychiatric Psychiatric: Reports systems reviewed and no addt'l complaints, except as documented Endocrine Endocrinology: Reports systems reviewed and no addt'l complaints, except as documented Hematologic/Lymphatic Hematologic/Lymphatic: Reports systems reviewed and no addt'l complaints, except as documented Physical Exam Const alert, oriented x3 and no apparent distress Neck full ROM Resp normal respiratory effort, normal air movement and no retractions Effort and Inspection: able to speak in complete sentences and symmetric chest movement GI soft to palpation Inspection: incision intact Bladder / Kidney Exam: bladder normal to palpation Uterus Palpation: uterus fundus firm Extremity normal to inspection and full ROM Psych mental status grossly normal, thought process normal and cooperative Assessment & Plan (1) Status post section: COMMENT: breech in labor - JV, KW assist PLAN: s/p LTCS PPD # 2 1. routine post care 2. breast feeding- support given 3. rh positive 4. rubella immune 5. Discharge home (2) Labor presentation, breech: (3) Rubella non-immune status, antepartum: COMMENT: equiv. recommend MMR vaccine PP (4) Obesity: QUALIFIERS: Obesity type: due to excess calories Obesity classification: adult class 3 (BMI >= 40) Serious obesity comorbidity presence: without serious comorbidity Body mass index: BMI 45.0-49.9 Qualified Code(s): E66.01 - Morbid (severe) obesity due to excess calories; Z68.42 - Body mass index [BMI] 45.0-49.9, adult COMMENT: weekly NSTs at 34 weeks- growth US with MFM scheduled for 32 & 36 wk. BMI 48,hbga1c with nob (5) Hx of pre-eclampsia in prior , currently : COMMENT: labs nl at NOB (6) Essential hypertension: COMMENT: on labetalol, will f/u with PCP growth us at 32 and 36 weeks plan weekly bpp's (7) History of herpes genitalis: COMMENT: valtrex at 36 weeks Charges/Coding Multi Select Codes Urinary/Genital Urinary/Genital CPT Codes: No Charge
--- NOTE | 2023-12-08 05:59 | DS.PCM_ITS ---
Providers Date of Admission: 12/06/23 Date of Discharge: 12/08/23 Primary Care Physician: Dr. Amadou Harvey MD Reason For Visit: INDUCTION/PRIMARY C SECTION DELIVERY Diagnosis Discharge Diagnosis (1) Status post section: Status: Acute Code(s): Z98.891 - History of uterine scar from previous surgery Plan: s/p LTCS PPD # 2 1. routine post care 2. breast feeding- support given 3. rh positive 4. rubella immune 5. Discharge home (2) Labor presentation, breech: Status: Acute Code(s): O32.1XX0 - Maternal care for breech presentation, not applicable or unspecified (3) Rubella non-immune status, antepartum: Status: Acute Code(s): O09.899 - Supervision of other high risk pregnancies, unspecified trimester; Z28.39 - Other underimmunization status (4) Obesity: Status: Acute Code(s): E66.9 - Obesity, unspecified Qualifiers: Obesity type: due to excess calories Obesity classification: adult class 3 (BMI >= 40) Serious obesity comorbidity presence: without serious comorbidity Body mass index: BMI 45.0-49.9 Qualified Code(s): E66.01 - Morbid (severe) obesity due to excess calories; Z68.42 - Body mass index [BMI] 45.0- 49.9, adult (5) Hx of pre-eclampsia in prior , currently : Status: Acute Code(s): O09.299 - Supervision of with other poor reproductive or obstetric history, unspecified trimester (6) Essential hypertension: Status: Chronic Code(s): I10 - Essential (primary) hypertension (7) History of herpes genitalis: Status: Acute Code(s): Z86.19 - Personal history of other infectious and parasitic diseases Medications at Discharge Home Medications multivitamin no.47-iron fum 27 mg-folate no.1 1 mg-dha 300 mg capsule (PNV-DHA) 1 tab PO DAILY 09/01/19 valacyclovir 500 mg tablet See Rx Instructions .Route .COMPLEX #30 TABLETS 03/02/22 ondansetron 4 mg disintegrating tablet 4 mg PO Q6H PRN nausea and vomiting #30 tabs 06/15/23 ibuprofen 800 mg tablet 800 mg PO Q8H PRN pain #30 tabs 12/06/23 oxycodone-acetaminophen 5 mg-325 mg tablet (Percocet) 1 tab PO Q4H PRN pain 7 days #20 tabs 12/06/23 labetalol 200 mg tablet 200 mg PO TID 30 days #90 tabs 12/07/23 Hospital Course Operations section Procedures None Summary of Care Provided Minutes Spent on Discharge: 30 Hospital Course: expected Physical Exam Const alert, oriented x3 and no apparent distress Neck full ROM Chest inspection of breasts normal Resp normal respiratory effort, normal air movement and no retractions Effort and Inspection: able to speak in complete sentences and symmetric chest movement GI soft to palpation Inspection: incision intact Bladder / Kidney Exam: bladder normal to palpation Uterus Palpation: uterus fundus Extremity normal to inspection and full ROM Neuro moves all extremities Psych mental status grossly normal, thought process normal and cooperative Weight / BMI Weight Weight: 303 lb Body Mass Index (BMI) 48.9 ABG / Lab / Microbiology Data 12/07/23 06:07 Laboratory: Laboratory Results - last 24 hr 12/07/23 06:07: WBC 12.0 H, RBC 3.78 L, Hgb 10.8 L, Hct 33.5 L, MCV 88.6, MCH 28.6, MCHC 32.2, RDW Std Deviation 43.9, RDW Coeff of [place] 13.5, Plt Count 232, MPV 10.3 D/C Instructions Discharge Diet: No restrictions May shower in (days): 0 May resume sexual activity in: 4-6 weeks Weight Bearing Status: Full weight bearing Call your doctor if your incision/area has: Continuous Slow Oozing, Sudden Increased Bleeding, Increased Pain/ Swelling, Increased Redness and Foul Smelling Discharge Call your doctor if you observe: Fever of 101 or Higher and Using more than 1 pad per hour Suture Line Care: Avoid Pulling/Pushing and Avoid Pinching/Bending Remove Dressing in: 5 days Cleanse incision/area with: Soap & Water and Keep Dressing Clean & Dry Please Follow Up With: Malka Dominguez DO When: Call [phone] to make an appointment for an incision check/bp check in 2 weeks. Meaningful Use Info Meaningful Use Meaningful Use Diagnoses (Choose all that apply): None applicable Ischemic Stroke Statin Dosing Therapy Reference: STATIN DOSE THERAPY REFERENCE: * Patients > 75 years receive moderate or high dose statin therapy. * Patients 75 years or YOUNGER should receive HIGH intensity statin dose unless contraindicated. You will be required to document reason for non-treatment if statin daily dose does not meet guidelines. HIGH DOSE STATIN THERAPY DAILY Atorvastatin > than or = to 40 mg Rosuvastatin > than or = to 20 mg Amlodipine + Atorvastatin > than or = to 2.5/40 mg Ezetimibe + Simvastatin 10/80 mg Simvastatin 80mg Discharge Plan Admission Admit Date/Time: 12/06/23 07:19 Primary Reason for Your Visit: section Attending Provider: Malka Dominguez Primary Care Provider: Amadou Harvey Discharge Orders/Prescriptions Prescriptions: New ibuprofen 800 mg tablet 800 mg PO Q8H PRN (Reason: pain) Qty: 30 0RF oxycodone-acetaminophen [Percocet] 5-325 mg tablet 1 tab PO Q4H PRN (Reason: pain) 7 Days Qty: 20 0RF Rx Instructions: 1-2 tabs q 4 hrs as needed for pain labetalol 200 mg tablet 200 mg PO TID 30 Days Qty: 90 1RF Continued PNV-DHA 27 mg iron-1 mg -300 mg capsule 1 tab PO DAILY ondansetron 4 mg tablet,disintegrating 4 mg PO Q6H PRN (Reason: nausea and vomiting) Qty: 30 2RF valacyclovir 500 mg tablet See Rx Instructions .ROUTE .COMPLEX Qty: 30 12RF Dose Instruction: TAKE 1 TABLET BY MOUTH EVERY DAY Rx Instructions: TAKE 1 TABLET BY MOUTH EVERY DAY Discontinued labetalol 100 mg tablet 100 mg PO BID Qty: 60 0RF Referrals / Follow Up: Amadou Harvey MD [Primary Care Provider] - Disposition Disposition (needs filled in before D/C Order can be placed): Home, Self Care Charges/Coding Multi Select Codes Urinary/Genital Urinary/Genital CPT Codes: No Charge
[2023-12-08] MEDS: Naproxen 500 MG Tablet PO (08:26)
== END 2023-12-08 13:35 | disposition home or self-care (01) | DRG 788 ==
PROVIDERS: Admitting Provider Obstetrics & Gynecology; PCP Family Medicine; Referring Provider Obstetrics & Gynecology; Visit Provider Obstetrics & Gynecology
DX: O10.02 Pre-existing essential hypertension complicating childbirth (principal); O99.214 Obesity complicating childbirth; E66.01 Morbid (severe) obesity due to excess calories; O32.8XX0 Maternal care for other malpresentation of fetus, not applicable or unspecified; Z37.0 Single live birth; Z3A.38 38 weeks gestation of pregnancy; Z79.899 Other long term (current) drug therapy; Z86.19 Personal history of other infectious and parasitic diseases; Z87.59 Personal history of other complications of pregnancy, childbirth and the puerperium
CPT/HCPCS: 36415; 85025; 85027; 86780; 86850; 86900; 86901; 99221; J7120; A4216; G0378; J2405